=== PATIENT | male | born 1955 | race Caucasian/White ===

== ENCOUNTER → 2020-11-02 13:06 | Outpatient (BNVA) | payer BC, SELFPAY | PROVIDERS: PCP Internal Medicine; Visit Provider Internal Medicine Cardiovascular Disease ==

== ENCOUNTER → 2020-11-03 09:49 | Outpatient (REF) | payer BC, SELFPAY ==
--- NOTE | 2020-11-03 09:53 | CA_ITS ---
Transthoracic Echocardiogram Patient (Last, First, Middle): Adriano Boothe W Gender: Male Date of : 1955 Age: 64 Procedure Date: 11/03/2020 Procedure Type: Transthoracic Echocardiogram Location: OP Height: 177.8 cm Weight: 82.56 kg BSA: 2.01 m2 Heart Rate: bpm BP: 119 / 63 mmHg It Security Manager: JAVON Referring MD: Jeet Rothman MD Pipe Threading Machine Operator: Jeet Rothman MD Symptoms: I48.91 - Unspecified atrial fibrillation Study Quality: Fair ECG Rhythm: Atrial Fibrillation Conclusions: - 1. Moderate LV systolic dysfunction with LVEF of 35-40% 2. Mild biatrial enlargement 3. Mild mitral regurgitation 4. Normal RV systolic pressure 5. No pericardial effusion Findings Left Ventricle Normal left ventricular cavity size. There is normal left ventricular wall thickness. The left ventricular systolic function is moderately decreased. The visually estimated ejection fraction is between 35-40%. Diastolic function is indeterminate on the basis of available data. Right Ventricle Normal right ventricular cavity size and systolic function. Atria The left atrium is mildly dilated. There is no evidence of interatrial shunt. The right atrium is mildly dilated. Aortic Valve Normal aortic valve structure and function. There is no aortic valve stenosis. There is no aortic valve regurgitation. Mitral Valve Normal mitral valve structure and function. There is mild mitral valve regurgitation. There is no mitral valve stenosis. Pulmonic Valve The pulmonic valve is likely normal. There is no pulmonic valve regurgitation. Tricuspid Valve Normal tricuspid valve structure. There is mild tricuspid valve regurgitation. The right ventricular systolic pressure is normal. The right ventricular systolic pressure is 26 mmHg. Normal right atrial pressure. There is no evidence of pulmonary hypertension. Great Vessels All visible segments of the aorta are normal in size. The pulmonary artery was not well visualized. Venous The inferior vena cava is normal in size and collapses greater than 50% with inspiration. Pericardium/Pleural There is no evidence of pericardial effusion. Prior Study Comparison Changes noted compared to prior study dated: 11/02/2017. LV systolic function is reduced Measurements M-Mode Liner Measurements Normals - Women/Men LVIDd: 5.94 3.9-5.3/4.2-5.9 cm LVIDd Index: 2.96 1.9-3.2 cm/m2 LVIDs: 5.04 2.0-3.8 cm M-Mode Volumes LV EDV: 176.00 LV ESV: 120.00 2D Linear Measurements IVSd: 1.12 0.6-0.9/0.6-1.0 cm LVIDd: 5.13 3.9-5.3/4.2-5.9 cm LVIDd Index: 2.55 2.4-3.2/2.2-3.1 cm/m2 LVIDs: 4.59 2.0-3.6 cm LVPWd: 0.97 0.7-1.1 cm Ao Root: 3.30 2.1-3.5 cm LA Diam: 3.80 2.7-3.8/3.0-4.0 cm LAIDs Index: 1.89 1.5-2.3 cm/m2 LV Mass: 251.67 67-162/88-224 g LV Mass Index: 125.21 43-95/49-115 g/m2 LVOT Diam: 2.30 3.0+(-)1.3 cm 2D Systolic Function EF 4C: 33.80 >55% EF 2C: 29.70 >55% EF BiP: 32.40 >55% M-Mode Systolic Function FS: 15.20 27-47/25-43% LVEF: 31.80 >55% Mitral Valve MV Pk E: 0.85 MV Decel Time: 110.00 E'Lateral: 12.50 E'Medial: 7.62 E/E' Med: 11.10 E/E' Lat: 6.80 PHT: 32.00 MVA PHT: 6.88 Decel [place]: 7.98 Aortic Valve AoV Pk Geovany: 0.92 AoV Pk Grad: 3.00 LVOT LVOT Pk Geovany: 0.71 LVOT Mn Geovany: 0.48 LVOT VTI: 0.12 LVOT Pk Grad: 2.00 LVOT Mn Grad: 1.00 LVOT Diam: 2.30 LVOT Area: 4.15 Diastolic Function MV Pk E: 0.85 E'Medial: 7.62 E/E' Med: 11.10 E' Laterial: 12.50 E/E' Lat: 6.80 Tricuspid Valve TR Pk Geovany: 1.91 TR Pk Grad: 18.00 RA Press: 8.00 RVSP: 26.00 Great Vessels Aorta Ao Root-2D: 3.30 2.0-3.7 cm Ao Asc: 3.70 2.1-3.4 cm Updated in Other Vendor System with Status of Final Jeet Rothman MD electronically signed on 11/03/2020 2:05:27 PM with status of Final
== END ==
LOC: HO.CARD 09:49
PROVIDERS: PCP Internal Medicine; Visit Provider Internal Medicine Cardiovascular Disease
DX: I48.91 Unspecified atrial fibrillation (principal)
CPT/HCPCS: 93005; 93306

== ENCOUNTER → 2020-11-16 10:09 | Outpatient (REF) | payer BC, SELFPAY ==
--- NOTE | 2020-11-16 14:58 | ECG_ITS ---
Hook-up date: 2020-11-16 11:19:00 Duration: 26:07:00 Test Indications: UNSPEC. ATRIAL FIB Medications: [id number] QRS complexes 11 Ventricular ectopics which represent <1 % of total QRS comp. * Supraventricular ectopics which represent % of total QRS comp. * Paced QRS complexs which represent % of total QRS comp. VENTRICULAR ECTOPY 9 Isolated 0 Bigeminal Cycles 1 Couplets 0 Runs 0 Beats in Runs * Beats LONGEST at * BPM at :: -- * Beats FASTEST at * BPM at :: -- SUPRAVENTRICULAR ECTOPY * Isolated * Couplets * Runs * Beats in Runs * Beats LONGEST at * BPM at :: -- * Beats FASTEST at * BPM at :: -- HEART RATES 58 MIN at 09:50:31 2020-11-17 111 AVG 171 MAX at 08:02:54 2020-11-17 LONGEST RR 1.8720 secs at 12:04:08 2020-11-16 S-T LEVELS Channel 1 - 128 mm at 11:19:00 2020-11-16 - 128 mm at 11:19:00 2020-11-16 Channel 2 - 128 mm at 11:19:00 2020-11-16 - 128 mm at 11:19:00 2020-11-16 Channel 3 - 128 mm at 03:03:81 -- - 128 mm at 03:03:81 Underlying rhythm is atrial fibrillation; Average ventricular rate 111/min; About 77% of the time, rate >100/min; Atrial fibrillation does not appear rate controlled; Patient did not report any symptoms in the diary Referred By: Jeet Rothman Overread By: JONO TRINH
== END ==
LOC: HO.CARD 10:09
PROVIDERS: PCP Internal Medicine; Visit Provider Internal Medicine Cardiovascular Disease
DX: I48.91 Unspecified atrial fibrillation (principal)
CPT/HCPCS: 93226

== ENCOUNTER → 2020-11-30 14:26 | Outpatient (BNVA) | payer BC, SELFPAY | PROVIDERS: PCP Internal Medicine; Visit Provider Internal Medicine Cardiovascular Disease | DX: I48.91 Unspecified atrial fibrillation (principal); I42.9 Cardiomyopathy, unspecified | CPT/HCPCS: 93005 ==

== ENCOUNTER 2020-12-08 11:58 | Day surgery (SDC) | payer BC, SELFPAY ==
[2020-12-03 12:40] VITALS: BMI 26.9
--- NOTE | 2020-12-07 12:00 | HO.ANESPROP2 ---
Documented by User: Mimi Carr 12/07/20 12:03 HPI - Anesthesia Eval Consult details Narrative: 65yo [facility] for [facility] Active Problems Active Problems: All Active Problems (Updated 12/03/20 @ 12:33 by Licha Lo) Cardiomyopathy (Acute) Atrial fibrillation with rapid ventricular response (Acute) Past Medical History Medical History Atrial fibrillation with rapid ventricular response Cardiomyopathy GERD (gastroesophageal reflux disease) History of COVID-19 Hx of Lyme disease Family History Family History Father Afib CVD (cardiovascular disease) Mother CVD (cardiovascular disease) Surgical History Surgical History History of appendectomy Hx of colonoscopy Social History Social History Are you a primary managed care nurse to a significant other at home: No Do you presently have visiting nurse or other home services: No Smoking Status: Former smoker Smoking Quit Date: > 10 yrs ago Advance Directives: No Advance Directives Information Provided: No Advance Directives on File: No Recently lost weight without trying: No Meds Allergies Allergy/AdvReac Type Severity Reaction Status Date / Time Penicillins [PENICILLINS] Allergy Unknown RASH Verified 12/08/20 12:10 Home Medications Medication Instructions Recorded Confirmed Last Taken Type acetaminophen [Tylenol] 650 mg PO Q6H PRN 12/03/20 12/03/20 Unknown History diltiazem HCl 1 cap PO DAILY 12/03/20 12/03/20 Unknown History Exam Exam Date and Time: December 07, 2020 1200 Height,Weight and Vital Signs: Height 5 ft 10 in Weight 85.275 kg Narrative Narrative: Echo Conclusions: - 1. Moderate LV systolic dysfunction with LVEF of 35-40% 2. Mild biatrial enlargement 3. Mild mitral regurgitation 4. Normal RV systolic pressure 5. No pericardial effusion EKG 11/2020 afib with RVR @ 114 Assessment and Plan Assessment Anesthesia Assessment: Chart Reviewed Documented by User: Kemal Giles MD 12/08/20 13:33 PMFSH Past Medical History Medical History Atrial fibrillation with rapid ventricular response Cardiomyopathy GERD (gastroesophageal reflux disease) History of COVID-19 Hx of Lyme disease Family History Family History Father Afib CVD (cardiovascular disease) Mother CVD (cardiovascular disease) Surgical History Surgical History History of appendectomy Hx of colonoscopy Social History Social History Are you a primary managed care nurse to a significant other at home: No Do you presently have visiting nurse or other home services: No Smoking Status: Former smoker Smoking Quit Date: > 10 yrs ago Advance Directives: No Advance Directives Information Provided: No Advance Directives on File: No Recently lost weight without trying: No Meds Allergies Allergy/AdvReac Type Severity Reaction Status Date / Time Penicillins [PENICILLINS] Allergy Unknown RASH Verified 12/08/20 12:10 Home Medications Medication Instructions Recorded Confirmed Last Taken Type acetaminophen [Tylenol] 650 mg PO Q6H PRN 12/03/20 12/03/20 Unknown History diltiazem HCl 1 cap PO DAILY 12/03/20 12/03/20 Unknown History Exam Airway Mallampati Class: I TM Dist: >3cm Neck ROM: Full Loose/Missing/Broken Teeth: No Heart: Atrial flutter Lungs: NL Assessment and Plan Assessment Anesthesia Assessment: Anesthesia Plan Discussed Final Anesthetic Review NPO: Yes ASA Class: III Final Preanesthetic Review: No Changes in Pt Med Stat, Meds/Allgs Chart Reviewed, Consent Obtained/Reviewed and Anes Risks/Benef Reviewed Patient Risk: Intermediate Procedure Risk: Low Anesthetic Plan Anesthetic Plan: MAC: Disposition: Standard PACU
--- NOTE | 2020-12-08 08:34 | MHC.SHP ---
Pre-Procedural Eval Section A The patient is an INPATIENT: No Changes since office visit: Yes Changes in Medication and Yes Patient answered all questions; No Cold of Flu in the past 2 weeks and No New Medical Problems The History & Physical has been completed within 30 days and I have reviewed it.: Yes Section B Chief Complaint: a-fib Allergies: Allergies Allergy/AdvReac Type Severity Reaction Status Date / Time Penicillins [PENICILLINS] Allergy Unknown RASH Unverified 12/03/20 12:30 Plan I have reviewed the history and physical and performed a pertinent physical examination on my patient. No changes have occurred unless specified.
[2020-12-08 12:43] VITALS: BP 134/90; PULSE 86; RESP 16; TEMP 36.5; O2SAT 100
[2020-12-08] MEDS: Lactated Ringers 1,000 ML 20 ML IVCONT (12:44)
--- NOTE | 2020-12-08 13:14 | CA_ITS ---
Transesophageal Echocardiogram Patient (Last, First, Middle): Adriano Boothe W Gender: Male Date of : 1955 Age: 65 Procedure Date: 12/08/2020 Procedure Type: Transesophageal Echocardiogram Location: OP Height: 177.8 cm Weight: 85.28 kg BSA: 2.03 m2 Heart Rate: bpm Draw Tender: YADIEL Referring MD: Jeet Rothman MD Lodging Facilities Manager: Jeet Rothman MD Symptoms: Pre cardioversion Conclusion: ??? 1. No intracardiac thrombi, masses or vegetations including in the left atrial appendage 2. Severely reduced LV systolic function 3. Biatrial enlargement, right greater than left 4. Mild aortic and mitral regurgitation 5. Mildly dilated ascending aorta 6. Normal pericardium 7. No intracardiac shunting Findings Procedure Information Consent was obtained prior to the procedure. Pre TUSHAR oral cavity was checked and revealed no overcrowding. The adult 3D probe was passed with no difficulty. Left Ventricle Normal left ventricular cavity size. The left ventricular systolic function is severely decreased. The visually estimated ejection fraction is between 25-30%. Diastolic function is indeterminate on the basis of available data. Right Ventricle Mildly increased right ventricular cavity size. There is normal right ventricular systolic function. Atria The left atrium is mildly dilated. There is no evidence of interatrial shunt. There is mild smoke formation seen within the left atrium. The left atrial appendage was identified in multiple views including with explain technology. There are no thrombi seen within left atrial appendage. The left atrial appendage ejection velocity is reduced below 40 centimeters/second. Left upper, right upper and right lower pulmonary vein drain normally into the left atrium. The right atrium is moderately dilated. The IVC and SVC drain normally into the right atrium. Aortic Valve Normal aortic valve structure and function. There is no aortic valve stenosis. There is mild aortic valve regurgitation. no masses or vegetations seen on the valve. Mitral Valve Normal mitral valve structure and function. There is mild mitral valve regurgitation. There is no mitral valve stenosis. No masses, vegetations attached to the leaflet. The inter valvular fibrosa is within normal limits Pulmonic Valve The pulmonic valve is normal. There is no pulmonic valve regurgitation. Tricuspid Valve Normal tricuspid valve structure. There is mild tricuspid valve regurgitation. The right ventricular systolic pressure is normal. Normal right atrial pressure. Great Vessels There is mild dilatation of the ascending aorta measuring 4.00 cm. The visualized portions of the pulmonary artery and branches are normal. Venous The inferior vena cava is normal in size and collapses greater than 50% with inspiration. Pericardium/Pleural There is no evidence of pericardial effusion. Prior Study Comparison Changes noted compared to prior study dated: 11/03/2020. Compared to prior transthoracic echo study, LV ejection fraction appears further reduced Measurements Great Vessels Aorta Ao Asc: 4.00 2.1-3.4 cm Updated by Jeet Rothman on 04:07 PM with Status of Final Jeet Rothman MD electronically signed on 12/08/2020 4:07:12 PM with status of Final
--- NOTE | 2020-12-08 14:04 | ECG_ITS ---
Test Reason : S/P CARDIOVERSION Blood Pressure : / mmHG Vent. Rate : 056 BPM Atrial Rate : 056 BPM P-R Int : 208 ms QRS Dur : 086 ms QT Int : 486 ms P-R-T Axes : 026 016 042 degrees QTc Int : 468 ms Sinus bradycardia Otherwise normal ECG When compared with ECG of 17-OCT-2017 12:02, QT has lengthened Referred By: Jeet Rothman Electronically Signed By:Abraham Borden
--- NOTE | 2020-12-08 14:05 | HO.CARDIVERS ---
Cardioversion Procedure Note Cardioversion Date of Procedure: 12/08/2020 Ordering Provider: Myself Performing Provider: Myself Indication for Procedure: LV systolic dysfunction with persistent difficult to control atrial fibrillation with rapid ventricular response Pre-Op Diagnosis: Persistent atrial fibrillation Post-Op Diagnosis: Sinus rhythm Performed with Transesophageal Echo: Yes TUSHAR findings (if TUSHAR Performed): No left atrial appendage clot noted. The full report dictated separately History: See H&P for details Consent: Verbal and Written consent was obtained from the patient before starting and confirming use of oral anticoagulation. The patient was made aware of the risk of the procedure including benefits, alternatives and 2nd opinion to the procedure Procedure: After consent obtained, cardioversion pads were attached AP configuration and the patient was sedated by the anesthesia team. Once adequate sedation achieved, patient was delivered 200 joules of biphasic synchronized energy in AP configuration. Complications: None Impression: Successful conversion to sinus rhythm Recommendations: 1. Continue amiodarone loading 400 mg b.i.d. for total of 2 weeks followed by 200 mg daily 2. Continue full oral anticoagulation with Xarelto 3. Stat EKG 4. Follow-up in the office in 4 weeks after Holter monitor.
[2020-12-08 14:09] VITALS: BP 105/68; PULSE 55; RESP 14; TEMP 36.6; O2SAT 96
[2020-12-08 14:24] VITALS: BP 106/72; PULSE 53; RESP 15; O2SAT 98
[2020-12-08 14:39] VITALS: BP 114/81; PULSE 57; RESP 15; O2SAT 100
[2020-12-08 14:54] VITALS: BP 115/82; PULSE 59; RESP 16; O2SAT 99
[2020-12-08 15:13] VITALS: TEMP 36.7
== END 2020-12-08 15:24 | disposition home or self-care (01) ==
PROVIDERS: PCP Internal Medicine; Visit Provider Internal Medicine Cardiovascular Disease
PROC: (CPT 93312; principal; 2020-12-08 13:30)
PROC: 5A2204Z Restoration of Cardiac Rhythm, Single (ICD-10-PCS; 2020-12-08 13:30)
DX: I48.19 Other persistent atrial fibrillation (principal); I42.9 Cardiomyopathy, unspecified; K21.9 Gastro-esophageal reflux disease without esophagitis; Z79.899 Other long term (current) drug therapy; Z88.0 Allergy status to penicillin; Z86.16 Personal history of COVID-19
CPT/HCPCS: 92960; 93005; 93312

== ENCOUNTER → 2020-12-22 15:00 | Outpatient (REF) | payer BC, SELFPAY ==
--- NOTE | 2020-12-22 13:56 | ECG_ITS ---
Hook-up date: 2020-12-22 15:21:00 Duration: 23:57:00 Test Indications: UNSPECIFIED AFIB Medications: [id number] QRS complexes 13 Ventricular ectopics which represent <1 % of total QRS comp. * Supraventricular ectopics which represent % of total QRS comp. * Paced QRS complexs which represent % of total QRS comp. VENTRICULAR ECTOPY 13 Isolated 0 Bigeminal Cycles 0 Couplets 0 Runs 0 Beats in Runs * Beats LONGEST at * BPM at :: -- * Beats FASTEST at * BPM at :: -- SUPRAVENTRICULAR ECTOPY * Isolated * Couplets * Runs * Beats in Runs * Beats LONGEST at * BPM at :: -- * Beats FASTEST at * BPM at :: -- HEART RATES 57 MIN at 17:56:06 2020-12-22 104 AVG 123 MAX at 14:18:35 2020-12-23 LONGEST RR 1.5120 secs at 18:09:57 2020-12-22 S-T LEVELS Channel 1 - 128 mm at 15:21:00 2020-12-22 - 128 mm at 15:21:00 2020-12-22 Channel 2 - 128 mm at 15:21:00 2020-12-22 - 128 mm at 15:21:00 2020-12-22 Channel 3 - 128 mm at 03:44:01 -- - 128 mm at 03:44:01 Underlying rhythm is atrial flutter; Average ventricular rate 104/min; range 57-123/min; About 71% of the time, ventricular rate >100/min; Rare PVCs; Patient diary not available for review. Referred By: Jeet Rothman Overread By: JONO TRINH
== END ==
LOC: HO.CARD 15:00
PROVIDERS: PCP Internal Medicine; Visit Provider Internal Medicine Cardiovascular Disease
DX: I48.91 Unspecified atrial fibrillation (principal)
CPT/HCPCS: 93005; 93226

== ENCOUNTER → 2020-12-23 14:34 | Outpatient (BNVA) | payer BC, SELFPAY | PROVIDERS: PCP Internal Medicine; Visit Provider Internal Medicine Cardiovascular Disease ==

== ENCOUNTER → 2021-08-29 14:38 | Outpatient (BNVA) | payer BC, SELFPAY | PROVIDERS: PCP Internal Medicine; Referring Provider Internal Medicine; Visit Provider Internal Medicine Cardiovascular Disease | DX: I42.9 Cardiomyopathy, unspecified (principal); I48.0 Paroxysmal atrial fibrillation | CPT/HCPCS: 93005 ==

== ENCOUNTER → 2021-10-27 08:33 | Outpatient (REF) | payer BC, SELFPAY ==
--- NOTE | 2021-10-27 08:36 | HM_ITS ---
Total monitoring time 3 days and 17 hours. Underlying rhythm is sinus. Minimum rate 56/Min. Maximum 123/Min. Average 67/Min. No atrial fibrillation or flutter AV blocks or pauses. Very rare supraventricular ectopy with minimal burden. No significant ventricular ectopy. No patient events. MTDD
--- NOTE | 2021-10-27 08:36 | CA_ITS ---
Transthoracic Echocardiogram Patient (Last, First, Middle): Adriano Boothe W Gender: Male Date of : 1955 Age: 65 Procedure Date: 10/27/2021 Procedure Type: Transthoracic Echocardiogram Location: OP Height: 177.8 cm Weight: 83.92 kg BSA: 2.02 m2 Heart Rate: bpm BP: 111 / 63 mmHg Front End Driver: JAVON Referring MD: Jeet Rothman MD Symptoms: I42.9 - Cardiomyopathy, unspecified Conclusions: - 1. Normal LV systolic function with normal filling pattern 2. Mildly dilated left atrium 3. Mild aortic and mitral regurgitation 4. Normal RV systolic pressure 5. No pericardial effusion Findings Left Ventricle Normal left ventricular size, thickness, and systolic function. The visually estimated ejection fraction is between 60-65%. There is no evidence of regional wall motion abnormalities. Spectral Doppler is indicative of a normal filling pattern. measured global longitudinal endocardial strain is - 23.6% which is within normal limits Right Ventricle Normal right ventricular cavity size and systolic function. Atria The left atrium is mildly dilated. There is no evidence of interatrial shunt. The right atrium is normal in size. Aortic Valve The aortic valve structure and function is likely normal. There is no aortic valve stenosis. There is mild aortic valve regurgitation. Mitral Valve Normal mitral valve structure and function. There is mild mitral valve regurgitation. There is no mitral valve stenosis. Pulmonic Valve The pulmonic valve was not well visualized. Tricuspid Valve Normal tricuspid valve structure. There is mild tricuspid valve regurgitation. The right ventricular systolic pressure is normal. The right ventricular systolic pressure is 22 mmHg. Normal right atrial pressure. There is no evidence of pulmonary hypertension. Great Vessels The pulmonary artery was not well visualized. There is mild dilatation of the ascending aorta measuring 3.80 cm. Venous The inferior vena cava is normal in size and collapses greater than 50% with inspiration. Pericardium/Pleural There is no evidence of pericardial effusion. Prior Study Comparison Significant changes compared to prior study dated: 12/08/2020. LV systolic function has normalized Measurements 2D Linear Measurements IVSd: 1.10 0.6-0.9/0.6-1.0 cm LVIDd: 4.95 3.9-5.3/4.2-5.9 cm LVIDd Index: 2.45 2.4-3.2/2.2-3.1 cm/m2 LVIDs: 2.85 2.0-3.6 cm LVPWd: 1.09 0.7-1.1 cm Ao Root: 4.00 2.1-3.5 cm LA Diam: 2.60 2.7-3.8/3.0-4.0 cm LAIDs Index: 1.29 1.5-2.3 cm/m2 LV Mass: 278.44 67-162/88-224 g LV Mass Index: 137.84 43-95/49-115 g/m2 LVOT Diam: 2.20 3.0+(-)1.3 cm 2D Systolic Function EF 4C: 62.30 >55% Mitral Valve MV Pk E: 0.67 MV PK A: 0.59 MV Decel Time: 251.00 E/A: 1.10 E'Lateral: 8.92 E'Medial: 8.70 E/E' Med: 7.70 E/E' Lat: 7.50 PHT: 74.00 MVA PHT: 2.97 Decel [place]: 2.66 Aortic Valve AoV Pk Geovany: 1.19 AoV Pk Grad: 6.00 AI Pk Geovany: 2.80 AI [place]: 1.19 LVOT LVOT Pk Geovany: 1.00 LVOT Mn Geovany: 0.69 LVOT VTI: 0.23 LVOT Pk Grad: 4.00 LVOT Mn Grad: 2.00 LVOT Diam: 2.20 LVOT Area: 3.80 Diastolic Function MV Pk E: 0.67 MV Pk A: 0.59 E/A: 1.10 E'Medial: 8.70 E/E' Med: 7.70 E' Laterial: 8.92 E/E' Lat: 7.50 Right Ventricle TAPSE (mm): 1.84 TVS' Geovany: 14.60 Tricuspid Valve TR Pk Geovany: 2.17 TR Pk Grad: 19.00 RA Press: 3.00 RVSP: 22.00 Great Vessels Aorta Ao Root-2D: 4.00 2.0-3.7 cm Ao Asc: 3.80 2.1-3.4 cm Updated in Other Vendor System with Status of Final Jeet Rothman MD electronically signed on 10/28/2021 4:12:25 PM with status of Final
== END ==
LOC: HO.CARD 08:33
PROVIDERS: PCP Internal Medicine; Visit Provider Internal Medicine Cardiovascular Disease
DX: I48.91 Unspecified atrial fibrillation (principal); I42.9 Cardiomyopathy, unspecified
CPT/HCPCS: 93242; 93306

== ENCOUNTER → 2021-11-07 09:51 | Outpatient (BNVA) | payer BC, SELFPAY | PROVIDERS: PCP Internal Medicine; Referring Provider Internal Medicine; Visit Provider Internal Medicine Cardiovascular Disease | DX: I48.0 Paroxysmal atrial fibrillation (principal); I42.9 Cardiomyopathy, unspecified | CPT/HCPCS: 93005 ==

== ENCOUNTER 2021-11-18 08:03 | Day surgery (SDC) | payer BC, SELFPAY ==
--- NOTE | 2021-11-17 08:37 | P.CONAN_ITS ---
Documented by User: Mimi Carr NP 11/17/21 08:41 HPI - Anesthesia Eval Consult details Narrative: 66yo M for Upper Endoscopy and Colonoscopy Xarelto for afib PMFSH Active Problems Active Problems: All Active Problems (Updated 11/14/21 @ 09:41 by Licha Lo RN) Typical atrial flutter (Acute) Paroxysmal atrial fibrillation (Acute) Cardiomyopathy (Acute) Past Medical History Medical History (Updated 11/14/21 @ 09:41 by Licha Lo RN) Atrial fibrillation with rapid ventricular response Cardiomyopathy GERD (gastroesophageal reflux disease) History of cardioversion History of COVID-19 Hx of Lyme disease On anticoagulant therapy Paroxysmal atrial fibrillation Family History Family History Father Afib CVD (cardiovascular disease) Mother CVD (cardiovascular disease) Surgical History Surgical History History of appendectomy Hx of colonoscopy Social History Social History Are you a primary primary care sales representative to a significant other at home: No Do you presently have visiting nurse or other home services: No Patient Tobacco Use Status: Former Tobacco user Quit Date: age 19 Use of substances other than those prescribed or required for medical reasons: No Are you DNR?: No Advance Directives: No Advance Directives Information Provided: Yes Meds Allergies Allergy/AdvReac Type Severity Reaction Status Date / Time Penicillins [PENICILLINS] Allergy Unknown RASH Verified 11/07/21 09:57 Home Medications Medication Instructions Recorded Confirmed Last Taken Type acetaminophen 325 mg tablet 650 mg PO Q6H PRN 12/03/20 11/14/21 Unknown History (Tylenol) Exam Exam Date and Time: November 17, 2021 0837 Narrative Narrative: EKG 11/2021 poor quality with baseline artifact with normal sinus rhythm with normal QT interval ECHO 10/2021 Conclusions: - 1.? Normal LV systolic function with normal filling pattern? ? 2. Mildly dilated left atrium? 3. Mild aortic and mitral regurgitation? 4.? Normal RV systolic pressure? 5.? No pericardial effusion? ? Holter 10/2021 Total monitoring time 3 days and 17 hours.? Underlying rhythm is sinus.? Minimum rate 56/Min.? Maximum 123/Min.? Average 67/Min.? No atrial fibrillation or flutter AV blocks or pauses.? Very rare supraventricular ectopy with minimal burden.? No significant ventricular ectopy.? No patient events. Assessment and Plan Assessment Anesthesia Assessment: Chart Reviewed Documented by User: Desmond Nicole MD 11/18/21 11:21 HPI - Anesthesia Eval Consult details Narrative: 66yo M for Upper Endoscopy and Colonoscopy Xarelto stopped by instrument/control technician [facility] Past Medical History Medical History (Updated 11/14/21 @ 09:41 by Licha Lo RN) Atrial fibrillation with rapid ventricular response Cardiomyopathy GERD (gastroesophageal reflux disease) History of cardioversion History of COVID-19 Hx of Lyme disease On anticoagulant therapy Paroxysmal atrial fibrillation Functional capacity: independent ambulation Family History Family History Father Afib CVD (cardiovascular disease) Mother CVD (cardiovascular disease) Family history of problems with anesthesia: No Surgical History Surgical History History of appendectomy Hx of colonoscopy History of Problems with Anesthesia: No Social History Social History Are you a primary primary care sales representative to a significant other at home: No Do you presently have visiting nurse or other home services: No Patient Tobacco Use Status: Former Tobacco user Quit Date: age 19 Use of substances other than those prescribed or required for medical reasons: No Are you DNR?: No Advance Directives: No Advance Directives Information Provided: Yes Meds Allergies Allergy/AdvReac Type Severity Reaction Status Date / Time Penicillins [PENICILLINS] Allergy Unknown RASH Verified 11/07/21 09:57 Home Medications Medication Instructions Recorded Confirmed Last Taken Type acetaminophen 325 mg tablet 650 mg PO Q6H PRN 12/03/20 11/14/21 Unknown History (Tylenol) Exam Airway Mallampati Class: II TM Dist: >3cm Neck ROM: Full Loose/Missing/Broken Teeth: Yes (Caps , missing , poor dentation ) Heart: rrr Lungs: bl breath sounds Assessment and Plan Assessment Anesthesia Assessment: Anesthesia Plan Discussed Final Anesthetic Review Family History of Problems with Anesthesia: No History of Problems with Anesthesia: No NPO: Yes ASA Class: III Final Preanesthetic Review: Meds/Allgs Chart Reviewed, Consent Obtained/Reviewed and Anes Risks/Benef Reviewed Patient Risk: High Procedure Risk: Intermediate Anesthetic Plan Anesthetic Plan: MAC: Disposition: Standard PACU
[2021-11-18 08:26] VITALS: BP 128/80; PULSE 65; RESP 18; TEMP 36.6; O2SAT 98; BMI 25.7
[2021-11-18] MEDS: Lactated Ringers 1,000 ML 100 ML IVCONT (08:49)
[2021-11-18 09:58] VITALS: BP 108/68; PULSE 56; RESP 12; TEMP 36.1; O2SAT 98
--- NOTE | 2021-11-18 10:01 | PM.OP ---
Brief Operative Note Date of Service: 11/18/21 Pre-op diagnosis: GERD, Screening Post-op diagnosis: other (Minimal hiatal hernia, Colon polyps) Procedure: EGD, Colonoscopy to the cecum and TI with hot snare polypectomy x 2, Placement of 1 Resolution clip on the rectal polypectomy site Surgeon: Meet Gaitan Anesthesia: MAC Was an Baseball Glove Stuffer used for this Procedure?: No Estimated blood loss (mL): 2.0 Pathology: other (A. Transverse colon polyp B. Rectal polyp) Condition: stable Disposition: PACU
[2021-11-18 10:13] VITALS: BP 125/65; PULSE 61; RESP 18; TEMP 36.1; O2SAT 99
--- NOTE | 2021-11-18 10:31 | OP_ITS ---
SURGEON: Meet Gaitan MD INDICATIONS: The patient presents for evaluation of gastroesophageal reflux and colorectal cancer screening. Full consent obtained from him for this, including risks of bleeding and perforation. PREOPERATIVE DIAGNOSIS: POSTOPERATIVE DIAGNOSIS: PROCEDURE PERFORMED: Esophagogastroduodenoscopy and colonoscopy to cecum and terminal ileum with hot snare polypectomy x2 and placement of a Resolution clip on the rectal polypectomy site. ESTIMATED BLOOD LOSS: COMPLICATIONS: ANESTHESIA: Monitored anesthesia care. ASSISTANTS: SPECIMENS: PREOPERATIVE DIAGNOSES: Gastroesophageal reflux and colorectal cancer screening. POSTOPERATIVE DIAGNOSES: Gastroesophageal reflux, colorectal cancer screening, small hiatal hernia, colon polyps, diverticulosis and internal hemorrhoids. DESCRIPTION OF PROCEDURE: The patient was placed in the left lateral decubitus position. The Olympus video gastroscope was passed in the posterior oropharynx and upper esophagus under direct vision. The scope was passed slowly into the distal esophagus. The gastroesophageal junction appeared normal at 39 cm. There was no sign of any esophagitis, Rivera esophagus, nor ulceration. The scope entered into the stomach. There was a minimal hiatal hernia. The scope was advanced to pylorus and the duodenum was cannulated to the descending portion. The duodenum including the bulb appeared normal without mass or ulceration. The scope was withdrawn back into the stomach. The gastric antrum and body appeared normal. Good peristalsis. Scope was retroflexed visualizing the proximal stomach carefully, which appeared normal, without any sign of mass or ulceration. The scope was straightened. The scope was withdrawn back to the esophagus. The gastroesophageal junction appeared normal. The esophageal mucosa appeared normal. The scope was withdrawn from the patient. He was turned around for the colonoscopy. The digital rectal exam revealed no abnormalities. The Olympus video pediatric colonoscope was entered into the rectum and advanced easily to the cecum. Once in the cecum I did identify normal-appearing cecal pouch with appendiceal orifice and a normal-appearing ileocecal valve. The terminal ileum was cannulated and appeared normal. The scope was withdrawn back in the colon. The entire cecum and ileocecal valve appeared normal. The scope was slowly withdrawn assessing all mucosal surfaces carefully. Preparation was excellent. In the transverse colon was an approximately 8 mm polyp on a short stalk, which was snared and recovered by suction with the hot snare polypectomy. The polypectomy site appeared clean, without any sign of residual polyp nor bleeding. There was a mild amount of sigmoid diverticulosis. There was no evidence of any colitis nor angiodysplasia. In the rectum was an approximately 8 mm grossly adenomatous polyp, which was removed by hot snare polypectomy and recovered by suction. There was persistent oozing from the polypectomy site and this was cauterized with the tip of the snare with good effect. I then placed a single Resolution clip on it as well. This was deployed well and there was good hemostasis. The scope was retroflexed visualizing some small internal hemorrhoids, but no other pathology. The rectal mucosa appeared normal. The scope was withdrawn from the patient. He tolerated both procedures well and was returned to recovery area in stable condition. IMPRESSION: 1. Colon polyps, status post hot snare polypectomy. 2. Diverticulosis. 3. Internal hemorrhoids. 4. Minimal hiatal hernia. PLAN: The results of the pathology will be checked. I would recommend a repeat colonoscopy in 5 years assuming these are tubular adenomas. He was advised not to use any aspirin and NSAIDs for at least 1 week. At this point, he is not using any omeprazole for reflux and he has been asymptomatic. He would otherwise see me on a p.r.n. basis. MD LEONARDA Mahajan/EMELINA / [phone]
== END 2021-11-18 10:57 | disposition home or self-care (01) ==
PROVIDERS: PCP Internal Medicine; Visit Provider Internal Medicine
PROC: (CPT 45385; principal; 2021-11-18 09:00)
DX: Z12.11 Encounter for screening for malignant neoplasm of colon (principal); Z80.0 Family history of malignant neoplasm of digestive organs; D12.3 Benign neoplasm of transverse colon; K62.1 Rectal polyp; K57.30 Diverticulosis of large intestine without perforation or abscess without bleeding; K64.8 Other hemorrhoids; K21.9 Gastro-esophageal reflux disease without esophagitis; K44.9 Diaphragmatic hernia without obstruction or gangrene; A69.20 Lyme disease, unspecified; Z86.16 Personal history of COVID-19; Z87.891 Personal history of nicotine dependence
CPT/HCPCS: 45385; 43235; 88305

== ENCOUNTER → 2022-04-06 10:27 | Outpatient (BNVA) | payer BC, SELFPAY | PROVIDERS: PCP Internal Medicine; Visit Provider Internal Medicine Cardiovascular Disease | DX: I48.0 Paroxysmal atrial fibrillation (principal); I42.9 Cardiomyopathy, unspecified | CPT/HCPCS: 93005 ==

== ENCOUNTER → 2022-07-28 12:11 | Outpatient (REF) | payer BC, SELFPAY ==
--- NOTE | 2022-07-28 12:16 | CA_ITS ---
Transthoracic Echocardiogram Patient (Last, First, Middle): Adriano Boothe W Gender: Male Date of : 1955 Age: 66 Procedure Date: 07/28/2022 Procedure Type: Transthoracic Echocardiogram Location: OP Height: 180.34 cm Weight: 79.38 kg BSA: 1.99 m2 Heart Rate: 72 bpm BP: 115 / 75 mmHg Brush Worker: SAILAJA Referring MD: Jeet Rothman MD Tube Bending Machine Operator: Jeet Rothman MD Symptoms: I48.0 - Paroxysmal atrial fibrillation Study Quality: Adequate ECG Rhythm: Sinus Conclusions: - 1. Normal LV systolic function with impaired relaxation filling pattern 2. Normal cardiac valvular Doppler 3. Mildly dilated ascending aorta 4.2 cm 4. No gross pericardial effusion Findings Left Ventricle Normal left ventricular size, thickness, and systolic function. The visually estimated ejection fraction is between 55-60%. Spectral Doppler is indicative of an impaired relaxation filling pattern. E/E prime ratio is between 8 and 15 consistent with indeterminate filling pressures. Right Ventricle Normal right ventricular cavity size and systolic function. Atria Both atria are normal in size. Interatrial shunt cannot be excluded. Aortic Valve The aortic valve structure and function is likely normal. There is no aortic valve stenosis. There is trace (trivial) aortic valve regurgitation. Mitral Valve Normal mitral valve structure and function. There is trace mitral valve regurgitation. There is no mitral valve stenosis. Pulmonic Valve The pulmonic valve was not well visualized. Tricuspid Valve Likely normal tricuspid valve structure and function. Tricuspid regurgitation envelope is inadequate for calculation of right ventricular systolic pressure. Great Vessels The pulmonary artery was not well visualized. There is mild dilatation of the ascending aorta measuring 4.20 cm. Venous The inferior vena cava was not well visualized. Pericardium/Pleural There is no evidence of pericardial effusion. Prior Study Comparison Changes noted compared to prior study dated: 10/27/2021. ascending aorta is measured at 4.2 cm Measurements 2D Linear Measurements IVSd: 0.97 0.6-0.9/0.6-1.0 cm LVIDd: 4.90 3.9-5.3/4.2-5.9 cm LVIDd Index: 2.46 2.4-3.2/2.2-3.1 cm/m2 LVIDs: 3.44 2.0-3.6 cm LVPWd: 1.17 0.7-1.1 cm LA Diam: 3.00 2.7-3.8/3.0-4.0 cm LAIDs Index: 1.51 1.5-2.3 cm/m2 LV Mass: 240.36 67-162/88-224 g LV Mass Index: 120.78 43-95/49-115 g/m2 LVOT Diam: 2.20 3.0+(-)1.3 cm 2D Systolic Function EF 4C: 59.90 >55% EF 2C: 53.20 >55% EF BiP: 56.20 >55% Mitral Valve MV Pk E: 0.57 MV PK A: 0.64 MV Decel Time: 240.00 E/A: 0.90 E'Lateral: 9.03 E'Medial: 9.46 E/E' Med: 6.00 E/E' Lat: 6.30 PHT: 70.00 MVA PHT: 3.14 Decel [place]: 2.38 Aortic Valve AoV Pk Geovany: 1.17 AoV Mn Geovany: 0.80 AoV VTI: 0.23 AoV Pk Grad: 5.00 Aov Mn Grad: 3.00 AMAURY Cont.VTI: 3.48 LVOT LVOT Pk Geovany: 1.02 LVOT Mn Geovany: 0.68 LVOT VTI: 0.21 LVOT Pk Grad: 4.00 LVOT Mn Grad: 2.00 LVOT Diam: 2.20 LVOT Area: 3.80 Diastolic Function MV Pk E: 0.57 MV Pk A: 0.64 E/A: 0.90 E'Medial: 9.46 E/E' Med: 6.00 E' Laterial: 9.03 E/E' Lat: 6.30 Right Ventricle TAPSE (mm): 22.60 TVS' Geovany: 13.50 Great Vessels Aorta Sinus of Valsalva: 4.00 2.0-3.5 cm Ao Asc: 4.20 2.1-3.4 cm Pulmonary Valve PV Pk Geovany: 0.87 Peak PV Grad: 3.00 Updated in Other Vendor System with Status of Final Jeet Rothman MD electronically signed on 07/28/2022 3:13:37 PM with status of Final
== END ==
LOC: HO.CARD 12:11
PROVIDERS: PCP Internal Medicine; Visit Provider Internal Medicine
DX: I48.0 Paroxysmal atrial fibrillation (principal)
CPT/HCPCS: 93306

== ENCOUNTER → 2022-10-12 09:15 | Outpatient (BNVA) | payer BC, SELFPAY | PROVIDERS: PCP Internal Medicine; Referring Provider Internal Medicine; Visit Provider Internal Medicine Cardiovascular Disease | DX: I48.0 Paroxysmal atrial fibrillation (principal); Z86.79 Personal history of other diseases of the circulatory system | CPT/HCPCS: 93005 ==

== ENCOUNTER 2023-05-15 12:44 | Outpatient (REF) | payer BC, SELFPAY ==
[2023-05-16 11:39] LABS: Lyme Abs Screen <0.90 index
== END 2023-05-15 12:45 | disposition home or self-care (01) ==
LOC: HO.10HDL 12:44
PROVIDERS: Visit Provider Internal Medicine
DX: R51.9 Headache, unspecified (principal); R53.83 Other fatigue
CPT/HCPCS: 36415; 86617; 86618

== ENCOUNTER 2023-06-07 09:42 | Outpatient (REF) | payer BC, SELFPAY ==
[2023-06-07 11:36] LABS: Alanine Aminotransferase 19 U/L (0-40); Albumin Level 4.2 g/dL (3.5-5.0); Alkaline Phosphatase 50 U/L (39-117); Anion Gap 11 (12-20); Aspartate Amino Transferase 20 U/L (5-37); Bilirubin Total 0.9 mg/dL (0.0-1.0); Blood Urea Nitrogen 15 mg/dL (9-16); C Reactive Protein < 0.10 mg/dL (< or = 0.50); Calcium 9.4 mg/dL (8.4-10.2); Carbon Dioxide 27 mmol/L (22-29); Chloride 105 mmol/L (96-108); Cholesterol 257 mg/dL (<200); Estimated Glomerular Filt Rate > 60; Glucose Fasting 92 mg/dL (60-99); HDL Cholesterol 50 mg/dL (>40); LDL Cholesterol Calculated 181 mg/dL (<100); Potassium 3.7 mmol/L (3.3-5.1); Sodium 139 mmol/L (135-145); Total Protein 7.2 g/dL (6.5-8.0); Triglycerides 131 mg/dL (<150)
[2023-06-07 11:50] LABS: Free T4 (Free Thyroxine) 0.88 ng/dL (0.71-1.85); Thyroid Stimulating Hormone 5.04 uIU/mL (0.32-4.0)
[2023-06-07 11:55] LABS: Prostate Specific Antigen Scr 0.76 ng/mL (<0.05-4.0); Vitamin B12 438 pg/mL (200-900)
[2023-06-07 11:57] LABS: MANUAL DIFF FLAG NO
[2023-06-07 12:21] LABS: Basophils Absolute Auto 0.1 X10*3/uL (0.0-0.2); Basophils Percent Auto 0.8 % (0-2); Eosinophils Absolute Auto 0.1 X10*3/uL (0.0-0.4); Eosinophils Percent Auto 1.7 % (0-4); Hematocrit 46.9 % (42.0-52.0); Imm Gran Abs Auto 0.02 X10*3/uL (0.00-0.03); Imm Gran Pct Auto 0.3 % (0.0-0.4); Lymphocytes Absolute Auto 3.3 X10*3/uL (1.2-4.9); Lymphocytes Percent Auto 42.9 % (20-40); Mean Corpuscular HGB Conc 34.1 g/dl (31.0-36.0); Mean Corpuscular Hemoglobin 30.9 pg (27.0-33.0); Mean Corpuscular Volume 90.5 fL (80.0-98.0); Mean Platelet Volume 10.4 fL (9.4-12.4); Monocytes Absolute Auto 0.5 X10*3/uL (0.1-1.2); Monocytes Percent Auto 6.2 % (2-11); Neutrophils Absolute Auto 3.7 x10*3/uL (2.0-8.3); Neutrophils Percent Auto 48.1 % (45-73); Platelet Count 290 X10*3/uL (160-400); Red Blood Count 5.18 X10*6/uL (4.60-5.80); Red Cell Distribution Width 12.3 % (11.0-16.0); White Blood Count 7.6 X10*3/uL (4.8-10.8)
[2023-06-07 12:23] LABS: Appearance Urine Clear; Color Urine Yellow; Glucose Urine UA Negative (Negative); Leukocyte Esterase Urine Negative (Negative); Nitrite Urine Negative (Negative); PH 7.5 (5.0-9.0); Urine Blood Negative (Negative); Urine Ketones Negative (Negative); Urine Protein Negative (Neg-Trace)
[2023-06-07 12:30] LABS: Estimated Average Glucose 94 mg/dL; Hemoglobin A1c % 4.9 % (<6.0)
== END 2023-06-07 09:43 | disposition home or self-care (01) ==
LOC: HO.10HDL 09:42
PROVIDERS: Visit Provider Internal Medicine
DX: R53.83 Other fatigue (principal); E78.00 Pure hypercholesterolemia, unspecified; Z12.5 Encounter for screening for malignant neoplasm of prostate; Z86.79 Personal history of other diseases of the circulatory system; Z86.19 Personal history of other infectious and parasitic diseases
CPT/HCPCS: 36415; 80053; 80061; 81003; 82550; 82607; 83036; 84153; 84439; 84443; 85025; 86140

== ENCOUNTER 2023-11-20 13:38 | Outpatient (AMB) | payer BC, SELFPAY ==
--- NOTE | 2023-11-20 13:42 | A.OFFVIS_ITS ---
Intake Vital Signs 11/20/23 13:43 Height 5 ft 11 in Weight 183 lb BMI 25.5 BP 120/80 Blood Pressure Location Lt brachial Position Sitting Pulse 63 Intake Visit Reasons: 1Y follow up Intake Note: 1 year follow-up with ekg feeling good Event Specialist Food Demonstrator Required: No Allergies Penicillins [PENICILLINS] Allergy (Unknown, Verified 04/06/22 10:29) RASH Medication List - Last Reconciled 11/20/23 by Jeet Rothman MD No Known Home Meds HPI HPI Comments History of Present Illness Details Adriano comes for follow-up. He is doing very well from cardiac perspective. No recurrent palpitation irregular heartbeat or fast heart rate. Denies any shortness of breath, orthopnea, PND. He continues to remain highly functional and active and still plays ice hockey. No symptoms associated with it. Currently not taking any medications. Drinks about 1 beer a day [facility] Medical History On anticoagulant therapy History of cardioversion Paroxysmal atrial fibrillation GERD (gastroesophageal reflux disease) History of COVID-19 Hx of Lyme disease Cardiomyopathy Atrial fibrillation with rapid ventricular response Surgical History History of appendectomy Hx of colonoscopy Family History Father Afib CVD (cardiovascular disease) Mother CVD (cardiovascular disease) Social History Are you a primary health care liaison to a significant other at home: No Do you presently have visiting nurse or other home services: No Alcohol intake: current Alcohol intake frequency: 0-2 drinks per day Patient Tobacco Use Status: Never used Tobacco Review of Systems Const Denies chills, Denies fatigue, Denies fever(s), Denies frequent falls, Denies weakness, Denies weight gain and Denies weight loss ENT Denies dizziness Card Denies chest pain, Denies leg edema, Denies lightheadedness, Denies palpitations, Denies dyspnea, Denies dyspnea on exertion, Denies orthopnea and Denies other (loss of consciousness) Resp Denies cough, Denies dyspnea and Denies dyspnea on exertion GI Denies hematochezia and Denies change in stool character Musc Denies abnormal gait, Denies muscle weakness, Denies numbness, Denies radiating pain into limb and Denies tingling Neuro Denies abnormal gait, Denies dizziness, Denies frequent falls, Denies numbness, Denies tingling and Denies weakness Endo Denies fatigue and Denies palpitations Physical Exam Vital Signs: Last Vital Signs Pulse 63 11/20/23 13:43 BP 120/80 11/20/23 13:43 BMI result Body Mass Index 25.5 Const General: cooperative, comfortable, alert and awake Nutritional Appearance: thin Orientation/consciousness: patient oriented x3 Limitations: no limitations Neck Neck: Yes trachea midline, Yes supple and Yes no JVD Resp Effort & Inspection: normal respiratory effort Auscultation: clear to auscultation bilaterally Cardio Jugular venous distension: no JVD Rate: regular rate and tachycardic Rhythm: regular rhythm Heart sounds: S1 normal heart sound present, S2 normal heart sound present, no click, no gallops, no murmurs and no rubs GI Auscultation: normal bowel sounds Skin General skin exam: no rashes or lesions noted Neuro General: patient oriented x3 and no focal motor deficits Extrem General: Yes no clubbing, cyanosis or edema Psych Appearance: grossly normal Office Procedures EKG Details: EKG shows normal sinus rhythm with normal EKG [id number], Complete Assessment & Plan Assessment & Plan (1) Paroxysmal atrial fibrillation: Comment: Foll'd by Dr. Rothman. Status post ablation of atrial flutter as well as pulmonary vein isolation, July 2021 Code(s): I48.0 - Paroxysmal atrial fibrillation Plan: Paroxysmal atrial fibrillation as well as flutter status post ablation therapy without any clinical recurrence. Currently off all medications. Doing very well from cardiac perspective. Avoidance of stimulants such as excessive c affeine or alcohol use was discussed. Understands agrees. Advised to call me with any new symptoms. No other interventions medications required at this point in time. (2) History of cardiomyopathy: Code(s): Z86.79 - Personal history of other diseases of the circulatory system Plan: History of cardiomyopathy in the setting of atrial fibrillation. Has done well with rhythm control approach with normalized LV ejection fraction. No signs or symptoms of heart failure. Continue avoid cardiotoxic agent. Report atrial fibrillation recurrent right away. Follow up with echocardiogram in 1 year's time. Will follow up in the clinic in 1 year's time, sooner p.r.n.. Thank you for all owing me to partake in his care Orders: Orders CA echo transthoracic complete 50 Weeks Z86.79 - Personal history of other diseases of the circulatory system Coding Level of Care Code Est Pt Level 4 (00809) Diagnoses Paroxysmal atrial fibrillation I48.0 History of cardiomyopathy Z86.79 CPT Codes EKG - CPT: 54714-[id number], Complete ([id number])
[2023-11-20 13:43] VITALS: BP 120/80; PULSE 63; BMI 25.5
== END 2023-11-20 14:47 | disposition home or self-care (01) ==
PROVIDERS: PCP Internal Medicine; Visit Provider Internal Medicine Cardiovascular Disease
DX: I48.0 Paroxysmal atrial fibrillation (principal); Z86.79 Personal history of other diseases of the circulatory system
CPT/HCPCS: 93010; 99214

== ENCOUNTER → 2023-11-20 13:38 | Outpatient (BNVA) | payer BC, SELFPAY | PROVIDERS: PCP Internal Medicine; Visit Provider Internal Medicine Cardiovascular Disease | DX: I48.0 Paroxysmal atrial fibrillation (principal); Z86.79 Personal history of other diseases of the circulatory system | CPT/HCPCS: 93005 ==

== ENCOUNTER 2024-01-30 12:26 | Outpatient (REF) | payer BC, SELFPAY ==
--- NOTE | ~2024-01-30 | XR_ITS ---
EXAMINATION: XR SINUSES CLINICAL INFORMATION: Sinus congestion, patient states cold for 3 months. COMPARISON: None available. TECHNIQUE: 5 views of the paranasal sinuses. FINDINGS: No gross air-fluid levels appreciated in the maxillary sinuses. Frontal sinuses are grossly clear. Hazy opacification of the ethmoid sinuses. Limited visualization due to overlying bony structures. XR/XR sinus min 3V IMPRESSION: Hazy opacification of the ethmoid sinuses. Dedicated CT scan of the paranasal sinuses/facial bones recommended if there is concern for sinus disease, facial bone fracture or other intracranial pathology as CT scan is much more sensitive for evaluation of intracranial pathology.
--- NOTE | ~2024-01-30 | XR_ITS ---
EXAMINATION: XR CHEST CLINICAL INFORMATION: Cough status post Covid. Patient states cold for 3 months. COMPARISON: 10/17/2017, TECHNIQUE: 2 views of the chest were obtained. FINDINGS: There is no gross pneumothorax. Heart size is normal. No pleural effusion. No focal consolidation to suggest pneumonia. Degenerative changes in the thoracic spine. XR/XR chest 2V IMPRESSION: No evidence of pneumonia.
== END 2024-01-30 12:27 | disposition home or self-care (01) ==
LOC: HO.XRAY 12:26
PROVIDERS: PCP Internal Medicine; Visit Provider Internal Medicine
DX: R05.9 Cough, unspecified (principal); R09.81 Nasal congestion; R06.2 Wheezing
CPT/HCPCS: 70220; 71046

== ENCOUNTER 2024-03-13 12:05 | Outpatient (REF) | payer BC, SELFPAY ==
[2024-03-13 13:11] LABS: MANUAL DIFF FLAG NO
[2024-03-13 13:22] LABS: Basophils Percent Auto 0.6 % (0-2); Eosinophils Absolute Auto 0.2 X10*3/uL (0.0-0.4); Eosinophils Percent Auto 2.5 % (0-4); Hematocrit 46.3 % (42.0-52.0); Hemoglobin 16.2 g/dl (14.0-18.0); Imm Gran Abs Auto 0.01 X10*3/uL (0.00-0.03); Imm Gran Pct Auto 0.2 % (0.0-0.4); Mean Corpuscular Hemoglobin 30.3 pg (27.0-33.0); Mean Corpuscular Volume 86.7 fL (80.0-98.0); Mean Platelet Volume 9.6 fL (9.4-12.4); Monocytes Absolute Auto 0.4 X10*3/uL (0.1-1.2); Monocytes Percent Auto 5.9 % (2-11); Neutrophils Absolute Auto 2.8 x10*3/uL (2.0-8.3); Neutrophils Percent Auto 43.8 % (45-73); Platelet Count 263 X10*3/uL (160-400); Red Blood Count 5.34 X10*6/uL (4.60-5.80); Red Cell Distribution Width 12.7 % (11.0-16.0); White Blood Count 6.4 X10*3/uL (4.8-10.8)
[2024-03-13 13:42] LABS: Alanine Aminotransferase 23 U/L (0-40); Albumin Level 4.2 g/dL (3.5-5.0); Alkaline Phosphatase 54 U/L (39-117); Anion Gap 10 (12-20); Aspartate Amino Transferase 21 U/L (5-37); Bilirubin Total 0.8 mg/dL (0.0-1.0); Blood Urea Nitrogen 18 mg/dL (9-16); Carbon Dioxide 25 mmol/L (22-29); Chloride 108 mmol/L (96-108); Estimated Glomerular Filt Rate > 60; Glucose Random 98 mg/dL (60-115); Potassium 3.8 mmol/L (3.3-5.1); Sodium 139 mmol/L (135-145)
[2024-03-13 14:28] LABS: Vitamin B12 397 pg/mL (200-900)
[2024-03-14 09:08] LABS: Lyme Abs Screen <0.90 index
== END 2024-03-13 12:06 | disposition home or self-care (01) ==
LOC: HO.10HDL 12:05
PROVIDERS: Visit Provider Internal Medicine
DX: R53.83 Other fatigue (principal); Z86.19 Personal history of other infectious and parasitic diseases
CPT/HCPCS: 36415; 80053; 82607; 85025; 86617; 86618

== ENCOUNTER → 2024-10-27 08:56 | Outpatient (REF) | payer BC, SELFPAY ==
--- NOTE | 2024-10-27 08:58 | CA_ITS ---
Transthoracic Echocardiogram Patient (Last, First, Middle): Adriano Boothe W Gender: Male Date of : 1955 Age: 68 Procedure Date: 10/27/2024 Procedure Type: Transthoracic Echocardiogram Location: OP Height: 177.8 cm Weight: 81.65 kg BSA: 2.00 m2 Heart Rate: bpm BP: 118 / 60 mmHg Garnett Fixer: OTILIA Referring MD: Jeet Rothman MD Symptoms: Z86.79 - Personal history of other diseases of the circulatory system Study Quality: Adequate ECG Rhythm: Atrial Fibrillation Conclusions: - The left ventricular systolic function is normal. The calculated ejection fraction is 57% by biplane method. - No obvious valvular pathology seen on this study. Findings Left Ventricle Normal left ventricular cavity size. There is mildly increased left ventricular wall thickness. The left ventricular systolic function is normal. The calculated ejection fraction is 57% by biplane method. There is no evidence of regional wall motion abnormalities. Diastolic function is normal for age. Right Ventricle Normal right ventricular cavity size and systolic function. Atria Both atria are normal in size. Aortic Valve There is a normal trileaflet aortic valve. There is no aortic valve stenosis. Trace to mild aortic regurgitation. Mitral Valve The mitral valve appears normal. There is no mitral valve regurgitation. There is no mitral valve stenosis. Pulmonic Valve The pulmonic valve is likely normal. Tricuspid Valve There is trace tricuspid valve regurgitation. There is no evidence of pulmonary hypertension. Great Vessels Top normal ascending aortic size at 3.8cm. Venous The inferior vena cava is normal in size and collapses greater than 50% with inspiration. Pericardium/Pleural There is no evidence of pericardial effusion. Prior Study Comparison Changes noted compared to prior study dated: 07/28/2022. Ascending aortic size dimension smaller than previously reported. Recommendations, Care & Conclusions No obvious valvular pathology seen on this study. Measurements 2D Linear Measurements IVSd: 1.22 0.6-0.9/0.6-1.0 cm LVIDd: 4.63 3.9-5.3/4.2-5.9 cm LVIDd Index: 2.32 2.4-3.2/2.2-3.1 cm/m2 LVIDs: 2.93 2.0-3.6 cm LVPWd: 1.21 0.7-1.1 cm Ao Root: 4.00 2.1-3.5 cm LA Diam: 3.00 2.7-3.8/3.0-4.0 cm LAIDs Index: 1.50 1.5-2.3 cm/m2 LV Mass: 262.75 67-162/88-224 g LV Mass Index: 131.37 43-95/49-115 g/m2 LVOT Diam: 2.20 3.0+(-)1.3 cm 2D Systolic Function EF 4C: 55.30 >55% EF 2C: 61.70 >55% EF BiP: 57.20 >55% Mitral Valve MV Pk E: 0.56 MV PK A: 0.61 MV Decel Time: 164.00 E/A: 0.90 E'Lateral: 8.49 E'Medial: 7.94 E/E' Med: 7.10 E/E' Lat: 6.60 PHT: 48.00 MVA PHT: 4.58 Decel [place]: 3.44 Aortic Valve AoV Pk Geovany: 1.23 AoV Mn Ge[place]: 0.76 AoV VTI: 0.27 AoV Pk Grad: 6.00 Aov Mn Grad: 3.00 AMAURY Cont.VTI: 3.49 LVOT LVOT Pk Geovany: 1.17 LVOT Mn Geovany: 0.67 LVOT VTI: 0.25 LVOT Pk Grad: 5.00 LVOT Mn Grad: 2.00 LVOT Diam: 2.20 LVOT Area: 3.80 Diastolic Function MV Pk E: 0.56 MV Pk A: 0.61 E/A: 0.90 E'Medial: 7.94 E/E' Med: 7.10 E' Laterial: 8.49 E/E' Lat: 6.60 Right Ventricle TAPSE (mm): 29.00 TVS' [place]: 14.00 Tricuspid Valve TR Pk Geovany: 1.83 TR Pk Grad: 13.00 RA Press: 3.00 RVSP: 16.00 Great Vessels Aorta Ao Root-2D: 4.00 2.0-3.7 cm Ao Asc: 3.80 2.1-3.4 cm Pulmonary Valve PV Pk Geovany: 0.97 Peak PV Grad: 4.00 Updated in Other Vendor System with Status of Final Rayray Alonzo MD electronically signed on 10/27/2024 12:36:48 PM with status of Final
== END ==
LOC: HO.CARD 08:56
PROVIDERS: PCP Internal Medicine; Visit Provider Internal Medicine Cardiovascular Disease
DX: Z86.79 Personal history of other diseases of the circulatory system (principal)
CPT/HCPCS: 93306

== ENCOUNTER 2024-11-20 13:17 | Outpatient (AMB) | payer BC, SELFPAY ==
[2024-11-20 13:27] VITALS: BP 120/62; PULSE 67; BMI 25.5
--- NOTE | 2024-11-20 13:27 | A.OFFVIS_ITS ---
Vital Signs 11/20/24 13:27 Height 5 ft 11 in Weight 182 lb 8.684 oz BMI 25.5 BP 120/62 Blood Pressure Location Lt brachial Position Sitting Pulse 67 Pulse Source Monitor Intake Visit Reasons: 1 yr f/up Intake Note: 1 yr f/up Outside Cutter Required: No Accompanied by: Self / Same As Patient Allergies Penicillins [PENICILLINS] Allergy (Unknown, Verified 04/06/22 10:29) RASH Medication List - Last Reconciled 11/20/24 by Jeet Rothman MD No Known Home Meds HPI Comments Details: Adriano comes for follow-up. He has been doing very well. He is remaining very active. Plays ice hockey regularly without any symptoms. Denies any exertional chest pain or shortness of breath. No heart failure symptoms. No irregular heartbeat or prolonged palpitation or fast heart rate. Currently not on any medications. [facility] Medical History On anticoagulant therapy History of cardioversion Paroxysmal atrial fibrillation GERD (gastroesophageal reflux disease) History of COVID-19 Hx of Lyme disease Cardiomyopathy Atrial fibrillation with rapid ventricular response Surgical History History of appendectomy Hx of colonoscopy Family History Father Afib CVD (cardiovascular disease) Mother CVD (cardiovascular disease) Social History Are you a primary physician locums urgent care to a significant other at home: No Do you presently have visiting nurse or other home services: No Alcohol intake: current Alcohol intake frequency: 0-2 drinks per day Patient Tobacco Use Status: Never used Tobacco Review of Systems Const Denies chills, Denies fatigue, Denies fever(s), Denies frequent falls, Denies weakness, Denies weight gain and Denies weight loss ENT Denies dizziness Card Denies chest pain, Denies leg edema, Denies lightheadedness, Denies palpitations , Denies dyspnea and Denies dyspnea on exertion Resp Denies cough, Denies dyspnea and Denies dyspnea on exertion GI Denies hematochezia Musc Denies abnormal gait, Denies muscle weakness, Denies numbness, Denies radiating pain into limb and Denies tingling Neuro Denies abnormal gait, Denies dizziness, Denies frequent falls, Denies numbness, Denies tingling and Denies weakness Endo Denies fatigue and Denies palpitations Physical Exam Vital Signs: Last Vital Signs Pulse 67 11/20/24 13:27 BP 120/62 11/20/24 13:27 BMI result Body Mass Index 25.5 Const General: cooperative, comfortable, alert and awake Nutritional Appearance: thin Orientation/consciousness: patient oriented x3 Limitations: no limitations Neck Neck: Yes trachea midline, Yes supple and Yes no JVD Resp Effort & Inspection: normal respiratory effort Auscultation: clear to auscultation bilaterally Cardio Jugular venous distension: no JVD Rate: regular rate and tachycardic Rhythm: regular rhythm Heart sounds: S1 normal heart sound present, S2 normal heart sound present, no c lick, no gallops, no murmurs and no rubs GI Auscultation: normal bowel sounds Skin General skin exam: no rashes or lesions noted Neuro General: patient oriented x3 and no focal motor deficits Extrem General: Yes no clubbing, cyanosis or edema Psych Appearance: grossly normal Office Procedures EKG Details: EKG shows normal sinus rhythm with normal EKG [id number], Complete Assessment & Plan Assessment & Plan (1) Paroxysmal atrial fibrillation: Comment: Foll'd by Dr. Rothman. Status post ablation of atrial flutter as well as pulmonar y vein isolation, July 2021 Code(s): I48.0 - Paroxysmal atrial fibrillation Category: Medical Plan: Paroxysmal atrial flutter as well as fibrillation status post ablation in 2020. He has done very well from that perspective. He has not had any recurrent ep isodes. We discussed about avoidance of stimulants. Advised to maintain activity level as tolerated. Stress mitigation strategies to be pursued. No change in therapy at this point time. Does have family history of atrial fibrillation and have recommended him to have his kids aware of the same. (2) History of cardiomyopathy: Code(s): Z86.79 - Personal history of other diseases of the circulatory system Category: Medical Plan: Prior history of cardiomyopathy in setting of atrial flutter and fibrillation which was difficult control. Status post ablation with rhythm maintain and his LV ejection fraction has improved. At this point time no change in therapy is required. Avoidance of cardiotoxic in such as alcohol was discussed. Will follow up in the clinic in 1 year's time, sooner p.r.n.. Thank you for allowing me to partake in his care Coding Level of Care Code Est Pt Level 4 (68692) Complex EM visit Add On G2211 Diagnoses Paroxysmal atrial fibrillation I48.0 History of cardiomyopathy Z86.79 CPT Codes EKG - CPT: 46583-[id number], Complete ([id number])
--- OUTSIDE RECORDS SUMMARY | 2024-11-20 14:11 | XMS_ITS ---
Author Organization [facility] Address [address] [place] [id number] Care Team Providers Care Fisher Eel Spear Name Role Phone Kailash Kaur MD Primary Care Provider UnavailMeet Cristina Unavailable [phone] REASON FOR VISIT colonoscopy Encounters Encounter Location Date Provider Diagnosis [facility] [address] [place] [id number] 11/11/2024 Meet Gaitan PLAN OF TREATMENT No Information
--- OUTSIDE RECORDS SUMMARY | 2024-11-20 14:11 | XMS_ITS | Patient Health Record ---
Author Organization [facility] Address [address] [place] [phone] Care Team Providers Care Hogshead Packer Name Role Phone Kailash Kaur MD Primary Care Provider Meet Bentley Unavailable [phone] ALLERGIES Allergen (clinical drug ingredient) Drug/Non Drug Allergy documented on EMR Reaction Allergy Type Onset Date Status Penicillin Unknown Drug Allergy Active REASON FOR REFERRAL No Information MEDICATIONS Medication SIG (Take, Route, Frequency, Duration) Notes Start Date End Date Status Tylenol PRN Active IMMUNIZATIONS Vaccine Route Administration Date Status Comme nts Influenza Unknown 09/22/2020 Refused SOCIAL HISTORY Tobacco Use: Social History Observation Description Date Details (start date - stop date) Former Smoker NA - NA Sex Assigned At : Social History Observation Description Sex Assigned At Unknown Tobacco Use/Smoking Question Answer Notes Patient is a former smoker How long has it been since you last smoked? > 10 years PROBLEMS Problem Type ICD Code Onset Dates Problem Status W/U Status Risk SNOMED Code Notes Problem Encounter for screening for malignant neoplasm of colon (Z12.11) Active confirmed 799446482 Problem Gastroesophageal reflux disease, esophagitis presence not specified (K21.9) Active confirmed 297348336 Problem Family history of colon cancer (Z80.0) Active confirmed 344613567 Problem Gastroesophageal reflux (K21.9) Active confirmed Esophageal reflux finding (601860454) Problem Diverticulosis of colon (K57.30) Active confirmed Diverticulosi s of colon (252557999) Problem Gastroesophageal reflux disease, unspecified whether esophagitis present (K21.9) Active confirmed [id number] Encounters Encounter Location Date Provider Diagnosis [facility] [address] [place] [phone] 11/11/2024 Meet Gaitan PLAN OF TREATMENT Future Test Test Name Order Date UPPER GI ENDOSCOPY 09/05/2017 COLONOSCOPY 09/05/2017 UPPER GI ENDOSCOPY 09/22/2020 COLONOSCOPY 09/22/2020 UPPER GI ENDOSCOPY 07/18/2021 COLONOSCOPY 07/18/2021 Insurance Providers Payer Name Payer Address Payer Phone Subscriber Number Group Number Insured Name Patient Relationship to Insured Coverage Start Date Coverage End Date [facility] [address] [place], [place] [id number] KASHIF DUNN Self - patient is the insured MEDICAL (GENERAL) HISTORY Medical History History ICD Code Screening colonoscopy 12-23-2007-neg. exc ept small internal hemorrhoids Lyme's disease-on intermittent antibioti cs Denies [place],DM,CVA,Lung disease,renal dise ase Hx of skipped heartbeats o r tachycardia--? 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
== END 2024-11-20 13:45 | disposition home or self-care (01) ==
PROVIDERS: PCP Internal Medicine; Visit Provider Internal Medicine Cardiovascular Disease
DX: I48.0 Paroxysmal atrial fibrillation (principal); Z86.79 Personal history of other diseases of the circulatory system
CPT/HCPCS: 93010; 99214

== ENCOUNTER → 2024-11-20 13:17 | Outpatient (BNVA) | payer BC, SELFPAY | PROVIDERS: PCP Internal Medicine; Visit Provider Internal Medicine Cardiovascular Disease | DX: I48.0 Paroxysmal atrial fibrillation (principal); Z86.79 Personal history of other diseases of the circulatory system | CPT/HCPCS: 93005 ==

== ENCOUNTER 2024-12-26 15:41 | Outpatient (AMB) | payer BC, SELFPAY ==
[2024-12-26 15:43] VITALS: BP 118/78; PULSE 72; RESP 14; TEMP 36.4; O2SAT 98; BMI 24.8
--- NOTE | 2024-12-26 15:43 | A.OFFPC_ITS ---
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 Required: No Accompanied by: Self / Same As Patient Allergies Penicillins [PENICILLINS] Allergy (Unknown, Verified 12/26/24 15:43) RASH Tobacco use date assessed: 12/26/24 Fall risk assessment: No Falls in past year Last assessed Fall Risk: 12/26/24 Dental Screening Dental Screen Date: 12/26/24 Did you have a dental visit in the last 12 months?: Yes Did you have a dental problem in the last 6 months where you did not have access to dental care?: No HPI HPI Comments History of Present Illness Details 69 y ear old male with a past medical hi story of cardiomyopathy, pAfib, hyperlipidemia, history of lyme disease presenting for follow up with concerns about development of headaches and ataxia/vertigo. CV: Follows with Dr Rothman- Plays ice hockey. Denies any exertional chest pain or shortness of breath. No heart failure symptoms. No irregular heartbeat or prolonged palpitation or fast heart rate. Currently not on any medications. Vertigo x one year. Went to sit on the toilet on three separate occasions and fell to the side on his way to sit. He has to concentrate on balance and walking. He at times role over in bed and gets classic vertigo. [place] his head a lot working on cars sometimes quite hard. Seeing ophtho for cataracts, has had a few episodes of double vision. Bruising more easily. New onset headaches - intermittent mild for the past year. 3-4 times per week. Head always feels stuffed, full. Did feel some improvement on antibiotics for tooth a few months ago. Sometimes certain foods, especially sugar seems to increase symptoms. Some increased fatigue, not severe. last CBC abnormal. Left shoulder pain. Unable to lift over 90 degree. multiple prior hockey injury 11/[address] Gaitan-5 year colonoscopy ROS see HPI PHYSICAL EXAM: GENERAL: Alert and oriented x 3. NAD EYES: EOMI. Anicteric. HENT: Moist mucous membranes. No scleral icterus. No cervical lymphadenopathy. Ear canals are clear with clear middle ear effusiongs bilaterally LUNGS: Clear to auscultation bilaterally. CARDIOVASCULAR: Regular rate and rhythm. No murmur. No JVD. ABDOMEN: Soft, non-tender +bs EXTREMITIES: No edema. Non-tender. SKIN: No rashes or lesions. Warm. NEUROLOGIC: Poor tandem walking, unable to balance one leg, strength intact PSYCHIATRIC: Cooperative. Appropriate mood and affect [facility] Medical History On anticoagulant therapy History of cardioversion Paroxysmal atrial fibrillation GERD (gastroesophageal reflux disease) History of COVID-19 Hx of Lyme disease Cardiomyopathy Atrial fibrillation with rapid ventricular response Surgical History History of appendectomy Hx of colonoscopy Family History Father Afib CVD (cardiovascular disease) Mother CVD (cardiovascular disease) Social History Housing: House Are you a primary acute care registered nurse to a significant other at home: No Do you presently have visiting nurse or other home services: No Alcohol intake: current Alcohol intake frequency: a few times a month Patient Tobacco Use Status: Former Tobacco user service: No Current occupational status: employed Cognitive needs: No Hearing needs: No Vision needs: Yes (rx glasses) Questionnaire PHQ-9 Over the last 2 weeks, how often have you been bothered by any of the following problems? 1. Little interest or pleasure in doing things: not at all 2. Feeling down, depressed, or hopeless: not at all 3. Trouble falling or staying asleep, or sleeping too much: not at all 4. Feeling tired or having little energy: not at all 5. Poor appetite or overeating: not at all 6. Feeling bad about yourself - or that you are a failure or have let yourself or your family down: not at all 7. Trouble concentrating on things, such as reading the newspaper or watching television: not at all 8. Moving or speaking so slowly that other people could have noticed. Or the opposite - being so fidgety or restless that you have been moving around a lot more than usual: not at all 9. Thoughts that you would be better off or of hurting yourself in some way: not at all Total score: 0 Depression Screening Interpretation: Negative Depression Screening Done: Yes 22565 - PHQ-9 Billing: Yes Source: Developed by Drs. Meet Beauchamp, Keiko Samuel, Foreign Hopson and colleagues, with an educational lyric from [employer]. Thrive Questionnaire Date Thrive assessed: 12/26/24 I am a: Patient What is your living situation today?: I have a steady place to live Within the past 12 months, did the food you bought not last and you didn't have the money to get more?: Never true Within the past 12 months, did you worry whether your food would run out before you got money to buy more?: Never true Do you have trouble paying for medicines?: No Do you have trouble getting transportation to medical appointments?: No Do you have trouble paying your heating and electricity bill?: No Do you have trouble taking care of your child, family member or friend?: No Do you have trouble with day-to-day activities such as bathing, preparing meals, shopping, managing finances, etc.?: No Are you currently unemployed and looking for a job?: No Are you interested in more education?: No Please select the resources that you would like help with: None THRIVE Score: 0 AUDIT C Alcohol Use Questionnaire (AUDIT-C) 1. How often do you have a drink containing alcohol?: 2-4 times a month 2. How many drinks containing alcohol do you have on a typical day when you are drinking?: 1 or 2 3. How often do you have six or more drinks on one occasion?: Never Total Score: 2 SAMANTHA-7 AMB Questionnaire SAMANTHA-7 Date SAMANTHA - 7 assessed: 12/26/24 Feeling nervous, anxious, or on edge: 0 = Not at all Not being able to stop or control worryin = Not at all Worrying too much about different things: 0 = Not at all Trouble relaxin = Not at all Being so restless that it is hard to sit still: 0 = Not at all Becoming easily annoyed or irritable: 0 = Not at all Feeling afraid as if something awful might happen: 0 = Not at all Total SAMANTHA-7 score (0-4 normal; 5-9 mild; 10-14 moderate; 15-21 severe): 0 Source: Developed by Drs. Meet Beauchamp, Keiko Samuel, Foreign Hopson and colleagues, with an educational lyric from [employer]. Physical exam (Primary Care) Vital Signs: Last Vital Signs Temp 97.6 F 12/26/24 15:43 Pulse 72 12/26/24 15:43 Resp 14 12/26/24 15:43 BP 118/78 12/26/24 15:43 Pulse Ox 98 12/26/24 15:43 Oxygen Delivery Method Room Air 12/26/24 15:43 BMI result Body Mass Index 24.8 Tobacco/Smoking Status: Tobacco use Status Tobacco use date assessed 12/26/24 12/26/24 15:44 Patient Tobacco Use Status Former Tobacco user 12/26/24 15:49 PHQ-9: PHQ-9 Score PHQ-9: Total score 0 12/26/24 15:55 Depression Screening Interpretation: Negative Thrive Assessment: Date of Thrive Assessment Date Thrive assessed 12/26/24 12/26/24 15:44 Coding Level of Care Code New Pt Level 5 (88764) Diagnoses Vertigo R42 Ataxia R27.0 New onset headache R51.9 Additional Codes PHQ-9 - 65167 - PHQ-9 Billing: Yes ([id number]) Time Spent (min) 65 Assessment & Plan Assessment & Plan (1) Vertigo: Code(s): R42 - Dizziness and giddiness Category: Medical (2) Ataxia: Code(s): R27.0 - Ataxia, unspecified Category: Medical (3) New onset headache: Code(s): R51.9 - Headache, unspecified Category: Medical Plan JORDAN, balance issues, vertigo, vision changes concerning. MR brain ordered-r/o mass, subdural, CVA Order given for vestibular rehab Trial of 14 day abx course Referral to [facility] ordered left shoulder pain, declines PT-referral for orthopedic evaluation Orders: Orders MR head/brain wo con 12/26/24 H53.2 - Diplopia, R27.0 - Ataxia, unspecified, R51.9 - Headache, unspecified, Z87.820 - Personal history of traumatic brain injury Complete Blood Count Auto Diff 12/26/24 M25.512 - Pain in left shoulder, R51.9 - Headache, unspecified, R79.89 - Other specified abnormal findings of blood chemistry, Z86.79 - Personal history of other diseases of the circulatory system Pathologist Review - CBC 12/26/24 M25.512 - Pain in left shoulder, R51.9 - Headache, unspecified, R79.89 - Other specified abnormal findings of blood chemistry, Z86.79 - Personal history of other diseases of the circulatory system, Z87.820 - Personal history of traumatic brain injury Erythrocyte Sedimentation Rate 12/26/24 M25.512 - Pain in left shoulder, R51.9 - Headache, unspecified, R79.89 - Other specified abnormal findings of blood chemistry, Z86.79 - Personal history of other diseases of the circulatory system Comprehensive Met. Panel 12/26/24 M25.512 - Pain in left shoulder, R51.9 - Headache, unspecified, R79.89 - Other specified abnormal findings of blood chemistry, Z86.79 - Personal history of other diseases of the circulatory system Prostate Specific Antigen 12/26/24 M25.512 - Pain in left shoulder, R51.9 - Headache, unspecified, R79.89 - Other specified abnormal findings of blood chemistry, Z86.79 - Personal history of other diseases of the circulatory system PT Evaluation and Treatment 12/26/24 R42 - Dizziness and giddiness Referrals Orthopedics Referral M25.512 - Pain in left shoulder Allergy & Immunology Referral Z91.018 - Allergy to other foods, Z91.09 - Other allergy status, other than to drugs and biological substances Medications: New amoxicillin-pot clavulanate 875-125 mg 1 tab PO BID 20 tabs 0RF
== END 2024-12-26 16:22 | disposition home or self-care (01) ==
LOC: HO.HMCHD 15:42
PROVIDERS: PCP Internal Medicine; Visit Provider Internal Medicine
DX: R42 Dizziness and giddiness (principal); R27.0 Ataxia, unspecified; R51.9 Headache, unspecified

== ENCOUNTER 2024-12-26 15:41 | Outpatient (REF) | payer BC, SELFPAY ==
[2024-12-26 16:42] LABS: MANUAL DIFF FLAG NO
[2024-12-26 17:13] LABS: Basophils Absolute Auto 0.1 X10*3/uL (0.0-0.2); Basophils Percent Auto 0.7 % (0-2); Eosinophils Absolute Auto 0.1 X10*3/uL (0.0-0.4); Eosinophils Percent Auto 1.6 % (0-4); Hematocrit 44.8 % (42.0-52.0); Hemoglobin 15.8 g/dl (14.0-18.0); Imm Gran Abs Auto 0.02 X10*3/uL (0.00-0.03); Imm Gran Pct Auto 0.2 % (0.0-0.4); Lymphocytes Absolute Auto 3.9 X10*3/uL (1.2-4.9); Lymphocytes Percent Auto 44.4 % (20-40); Mean Corpuscular HGB Conc 35.3 g/dl (31.0-36.0); Mean Corpuscular Hemoglobin 30.7 pg (27.0-33.0); Monocytes Absolute Auto 0.5 X10*3/uL (0.1-1.2); Monocytes Percent Auto 5.9 % (2-11); Neutrophils Absolute Auto 4.2 x10*3/uL (2.0-8.3); Neutrophils Percent Auto 47.2 % (45-73); Platelet Count 265 X10*3/uL (160-400); Red Blood Count 5.15 X10*6/uL (4.60-5.80); Red Cell Distribution Width 12.7 % (11.0-16.0); White Blood Count 8.8 X10*3/uL (4.8-10.8)
[2024-12-26 17:53] LABS: Erythrocyte Sedimentation Rate 3 MM/HR (0-15)
[2024-12-26 18:13] LABS: Alanine Aminotransferase 20 U/L (0-40); Anion Gap 10 (12-20); Aspartate Amino Transferase 22 U/L (5-37); Bilirubin Total 0.6 mg/dL (0.0-1.0); Blood Urea Nitrogen 17 mg/dL (9-16); Calcium 9.1 mg/dL (8.4-10.2); Carbon Dioxide 25 mmol/L (22-29); Chloride 108 mmol/L (96-108); Estimated Glomerular Filt Rate > 60; Glucose Random 84 mg/dL (60-115); Potassium 3.8 mmol/L (3.3-5.1); Sodium 139 mmol/L (135-145); Total Protein 6.8 g/dL (6.5-8.0)
[2024-12-26 18:28] LABS: Alkaline Phosphatase 52 U/L (39-117)
[2024-12-26 18:35] LABS: Prostate Specific Antigen 1.13 ng/mL (<0.05-4.0)
== END 2024-12-26 15:42 | disposition home or self-care (01) ==
LOC: HO.LAB 15:41
PROVIDERS: PCP Internal Medicine; Visit Provider Internal Medicine
DX: R42 Dizziness and giddiness (principal); R27.0 Ataxia, unspecified; R51.9 Headache, unspecified; M25.512 Pain in left shoulder; R79.89 Other specified abnormal findings of blood chemistry; Z86.79 Personal history of other diseases of the circulatory system; Z87.820 Personal history of traumatic brain injury; Z12.5 Encounter for screening for malignant neoplasm of prostate
CPT/HCPCS: 80053; 84153; 85025; 85652; 96127

== ENCOUNTER 2025-01-10 09:16 | Outpatient (REF) | payer BC, SELFPAY ==
--- NOTE | ~2025-01-10 | MR_ITS ---
EXAMINATION: MR BRAIN WITHOUT IV CONTRAST HISTORY: R51.9 - Headache, unspecified TECHNIQUE: Sagittal T1, and axial T1, FLAIR, T2, gradient echo, and diffusion weighted MR images of the brain were obtained. COMPARISON: None FINDINGS: There is mild prominence of the ventricular system and cortical sulci, consistent with atrophy. Scattered periventricular and subcortical white matter hyperintensities are noted on the FLAIR and T2-weighted images which are nonspecific, but often seen in the setting of small vessel ischemic disease. There is no mass effect or midline shift. There is a focus of magnetic susceptibility artifact in the posterior right temporal lobe, consistent with hemosiderin or possibly calcification. There is no evidence of acute intracranial hemorrhage. There are no foci of restricted diffusion. Normal vascular flow voids are noted in the basilar and carotid arteries. The visualized paranasal sinuses are clear. MR/MR head/brain wo con IMPRESSION: No evidence of acute infarct or intracranial hemorrhage. Electronically signed by: Meet Emery MD 01/12/2025 07:18 AM EDT
--- OUTSIDE RECORDS SUMMARY | 2025-01-10 09:20 | XMS_ITS | Patient Health Record ---
Author Organization [facility] Address [address] [place] [address] Care Team Providers Care Gold Reclaimer Name Role Phone Kailash Kaur MD Primary Care Provider Meet Bentley Unavailable [phone] Allergies Allergen (clinical drug ingredient) Drug/Non Drug Allergy documented on EMR Reaction Allergy Type Onset Date Status Penicillin Unknown Drug Allergy Active Reason For Referral No Information Medications Medication SIG (Take, Route, Frequency, Duration) Notes Start Date End Date Status Tylenol PRN Active Immunizations Vaccine Route Administration Date Status Comme nts Influenza Unknown 09/22/2020 Refused Social History Tobacco Use: Social History Observation Description Date Details (start date - stop date) Former Smoker NA - NA Tobacco Use/Smoking Question Answer Notes Patient is a former smoker How long has it been since you last smoked? > 10 years Section Notes: Nonsmoker > 10 yrs ago; occ. alcohol Nonsmoker > 10 yrs ago; 1-2 beers QD Nonsmoker > 10 yrs ago; 1-2 beers QD Problems Problem Type SNOMED Code ICD Code Onset Dates Problem Status W/U Status Risk Notes Problem [id number] Encounter for screening for malignant neoplasm of colon (Z12.11) Active confirmed Problem 417888061 Gastroesophageal reflux disease, esophagitis presence not specified (K21.9) Active confirmed Problem 683424487 Family history o f colon cancer (Z80.0) Active confirmed Problem Esophageal reflux finding (772129992) Gastroesophageal reflux (K21.9) Active confirmed Problem Diverticulosis of colon (667729702) Diverticulosis of colon (K57.30) Active confirmed Problem 620051861 Gastroesophageal reflux disease, unspecified whether esophagitis present (K21.9) Active confirmed Encounters Encounter Location Date Provider Diagnosis [facility] [address] [place] [address] 11/11/2024 Meet Gaitan Plan Of Treatment Future Test Test Name Order Date UPPER GI ENDOSCOPY 09/05/2017 COLONOSCOPY 09/05/2017 UPPER GI ENDOSCOPY 09/22/2020 COLONOSCOPY 09/22/2020 UPPER GI ENDOSCOPY 07/18/2021 COLONOSCOPY 07/18/2021 Insurance Providers Payer Name Payer Address Payer Phone Subscriber Number Group Number Insured Name Patient Relationship to Insured Coverage Start Date Coverage End Date [facility] [address] [place], [place] [id number] KASHIF DUNN Self - patient is the insured Medical (General) History Medical History History ICD Code Screening colonoscopy 12-23-2007-neg. exc ept small internal hemorrhoids Lyme's disease-on intermittent antibioti cs Denies [place],DM,CVA,Lung disease,renal dise ase Hx of skipped heartbeats o r tachycardia--? 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
--- OUTSIDE RECORDS SUMMARY | 2025-01-10 09:20 | XMS_ITS ---
Author Organization [facility] Address [address] [place] [phone] Care Team Providers Care Stage Set Up Worker Name Role Phone Kailash Kaur MD Primary Care Provider Meet Bentley [phone] REASON FOR VISIT colonoscopy Encounters Encounter Location Date Provider Diagnosis [facility] [address] [facility] [address] [place] [phone] 11/11/2024 Meet Gaitan Plan Of Treatment No Information Progress Notes * KASHIF DUNN WDOB:1955 (68 yo M)Acc No.[id number]:11/11/2024 Patient:?KASHIF DUNN :1955???Age:68 Y???Sex:Male Address:[address] [place] [address] * true * Date:? Generated for Delphine wells/Mary/eTransmitting on:?01/10/2025 09:20 AM EDT
== END 2025-01-10 09:17 | disposition home or self-care (01) ==
LOC: HO.MRI 09:16
PROVIDERS: PCP Internal Medicine; Visit Provider Internal Medicine
DX: R51.9 Headache, unspecified (principal); R27.0 Ataxia, unspecified; H53.2 Diplopia; Z87.820 Personal history of traumatic brain injury
CPT/HCPCS: 70551

== ENCOUNTER → 2025-01-10 09:16 | Outpatient (BNV) | payer BC, SELFPAY | PROVIDERS: PCP Internal Medicine; Visit Provider Radiology Diagnostic Radiology | DX: R51.9 Headache, unspecified (principal) | CPT/HCPCS: 70551 ==

== ENCOUNTER 2025-02-02 08:16 | Outpatient (REF) | payer BC, SELFPAY ==
--- NOTE | ~2025-02-02 | XR_ITS ---
EXAMINATION: XR SHOULDER, LEFT CLINICAL INFORMATION: M25.519 - Pain in unspecified shoulder COMPARISON: None available. TECHNIQUE: AP external rotation, Grashey, scapular Y, and axillary views of the left shoulder. FINDINGS: Normal bone mineralization. No fracture, dislocation, or suspicious bone lesion. Normal alignment. The glenohumeral joint demonstrate moderate osteoarthrosis with undersurface spurs. The AC joint demonstrates moderate predominantly superior surface spurring. There is a neutral lateral acromion. Minimal undersurface spurring. The subacromial space is mildly narrowed. Remainder of the soft tissue and bony structures appear normal. XR/XR shoulder LT min 2V IMPRESSION: 1. No acute bony abnormalities. 2. Moderate glenohumeral joint and AC joint osteoarthrosis. 3. Minimal subacromial spurring with mild narrowing of the subacromial space. Electronically signed by: Kingston García MD 02/02/2025 01:27 PM EDT
== END 2025-02-02 08:17 | disposition home or self-care (01) ==
LOC: HO.HOSX 08:16
PROVIDERS: Visit Provider Physician Assistant
DX: M25.512 Pain in left shoulder (principal)
CPT/HCPCS: 73030

== ENCOUNTER 2025-02-02 08:43 | Outpatient (AMB) | payer BC, SELFPAY ==
--- NOTE | 2025-02-02 08:50 | MHC.OFFVIS ---
Vital Signs 02/02/25 08:53 Height 5 ft 11 in Weight 178 lb BMI 24.8 Handedness Right Intake Visit Reasons: New Pt - left shoulder pain Intake Note: Adriano is a 69 year old right hand dominant male who presents today as a new patient for a evaluation of his left shoulder pain. Hx of pain starting in 08/2020. Patient had a couple falls leading him to fall on his shoulder. Patient has a hx of vertigo. He states that his pain is on the lateral aspect of the shoulder and it moves down to the bicep. Patient reports that his ROM is limited. Allergies Penicillins [PENICILLINS] Allergy (Unknown, Verified 02/02/25 08:52) RASH HPI HPI New Pt - left shoulder pain: Details: Mr. Boothe is a 69-year-old right-hand dominant male who presents to the office today for evaluation of left shoulder pain. He reports that in 2019 he was playing hockey and injured the left shoulder. He reports that the pain is mostly located on the lateral aspect of the shoulder and radiates down into the biceps. He has not had any prior treatment. [facility] Medical History On anticoagulant therapy History of cardioversion Paroxysmal atrial fibrillation GERD (gastroesophageal reflux disease) History of COVID-19 Hx of Lyme disease Cardiomyopathy Atrial fibrillation with rapid ventricular response Surgical History History of appendectomy Hx of colonoscopy Family History Father Afib CVD (cardiovascular disease) Mother CVD (cardiovascular disease) Social History Housing: House Are you a primary healthcare account manager to a significant other at home: No Do you presently have visiting nurse or other home services: No Alcohol intake: current Alcohol intake frequency: a few times a month Patient Tobacco Use Status: Former Tobacco user service: No Current occupational status: employed Cognitive needs: No Hearing needs: No Vision needs: Yes (rx glasses) Review of Systems Const All systems reviewed & are unremarkable except as noted in HPI and below Physical Exam Vital Signs: BMI result Body Mass Index 24.8 Assessment & Plan Assessment & Plan (1) Osteoarthritis of left glenohumeral joint: Code(s): M19.012 - Primary osteoarthritis, left shoulder Category: Medical (2) Rotator cuff insufficiency of left shoulder: Code(s): M25.312 - Other instability, left shoulder Category: Medical Plan Mr. Boothe is a 69-year-old right-hand dominant male who presents to the office today for evaluation of left shoulder pain. He reports that in 2019 he was playing hockey and injured the left shoulder. He reports that the pain is mostly located on the lateral aspect of the shoulder and radiates down into the biceps. He has not had any prior treatment. While in the office today, we discussed the role of cortisone injections. Patient would like to hold off at this time. He will keep in mind if his pain becomes significant and is impacting his daily life that he will contact me and we can move forward with cortisone injection. We also briefly discussed the role of total joint arthroplasty. As the patient has not tried any conservative treatment this is not recommended at this time. Patient has also not looking for surgical intervention at this time. He will follow up PRN, sooner if needed. X-rays of the left shoulder which were obtained while in the office today and were reviewed by me, Kristine Norman PA-C, revealed high-riding humerus and glenohumeral joint arthritis osteophytes off of the inferior humeral head and glenoid. Orders: Orders XR shoulder LT min 2V Today M25.519 - Pain in unspecified shoulder Coding Level of Care Code New Pt Level 4 (97972) Diagnoses Osteoarthritis of left glenohumeral joint M19.012 Rotator cuff insufficiency of left shoulder M25.312
[2025-02-02 08:53] VITALS: BMI 24.8
--- OUTSIDE RECORDS SUMMARY | 2025-02-02 09:07 | XMS_ITS ---
Author Organization [facility] Address [address] [place] [phone] Care Team Providers Care Roll Over Loader Name Role Phone Kailash Kaur MD Primary Care Provider Meet Bentley [phone] REASON FOR VISIT colonoscopy Encounters Encounter Location Date Provider Diagnosis [facility] [address] [facility] [address] [place] [phone] 11/11/2024 Meet Gaitan Plan Of Treatment No Information Progress Notes * KASHIF DUNN WDOB:1955 (68 yo M)Acc No.[id number]:11/11/2024 Patient:?KASHIF DUNN :1955???Age:68 Y???Sex:Male Address:[address] [place] [id number] * true * Date:? Generated for Delphine wells/Mary/eTransmitting on:?02/02/2025 09:07 AM EDT
--- OUTSIDE RECORDS SUMMARY | 2025-02-02 09:07 | XMS_ITS | Patient Health Record ---
Author Organization [facility] Address [address] [place] [address] Care Team Providers Care Cio Name Role Phone Kailash Kaur MD Primary Care Provider Meet Bentley Unavailable [phone] Allergies Allergen (clinical drug ingredient) Drug/Non Drug [...] Problem Status W/U Status Risk Notes Problem 515742081 Encounter for screening for malignant neoplasm of colon (Z12.11) Active confirmed Problem 427814523 Gastroesophageal reflux disease, esophagitis presence not specified (K21.9) Active confirmed Problem 097883544 Family history o f colon cancer (Z80.0) Active confirmed Problem Gastroesophageal reflux (K21.9) Active confirmed Problem Diverticulosis of colon (917644065) Diverticulosis of colon (K57.30) Active confirmed Problem 173147139 Gastroesophageal reflux disease, unspecified whether esophagitis present (K21.9) Active confirmed Encounters Encounter Location Date Provider Diagnosis [facility] [address] [place] [address] 11/11/2024 Meet Gaitan Plan Of Treatment Future Test Test Name Order Date UPPER GI ENDOSCOPY 09/05/2017 COLONOSCOPY 09/05/2017 UPPER GI ENDOSCOPY 09/22/2020 COLONOSCOPY 09/22/2020 UPPER GI ENDOSCOPY 07/18/2021 COLONOSCOPY 07/18/2021 Insurance Providers Payer Name Payer Address Payer Phone Subscriber Number Group Number Insured Name Patient Relationship to Insured Coverage Start Date Coverage End Date [facility] [address] [place], [place] [id number] KASHIF DUNN Self - patient is the insured Medical (General) History Medical History History ICD Code Screening colonoscopy 12-23-2007-neg. exc ept small internal hemorrhoids Lyme's disease-on intermittent antibioti cs Denies [place],DM,CVA,Lung disease,renal dise ase Hx of skipped heartbeats o r tachycardia--? 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
== END 2025-02-02 09:07 | disposition home or self-care (01) ==
LOC: HO.HOS 08:43
PROVIDERS: PCP Internal Medicine; Visit Provider Physician Assistant
DX: M19.012 Primary osteoarthritis, left shoulder (principal); M25.312 Other instability, left shoulder
CPT/HCPCS: 99203

== ENCOUNTER → 2025-02-02 08:44 | Outpatient (BNV) | payer BC, SELFPAY | PROVIDERS: Visit Provider Radiology Diagnostic Radiology | DX: M19.012 Primary osteoarthritis, left shoulder (principal); M19.022 Primary osteoarthritis, left elbow | CPT/HCPCS: 73030 ==

== ENCOUNTER 2025-02-19 12:03 | Outpatient (AMB) | payer BC, SELFPAY ==
--- NOTE | 2025-02-19 12:07 | A.OFFPC_ITS ---
Vital Signs 02/19/25 12:13 Height 5 ft 11 in Weight 182 lb 4 oz BMI 25.4 BP 102/62 Blood Pressure Location Rt brachial Position Sitting Pulse 80 Pulse Source Pulse Oximeter Temp 98.1 F Temp Source Temporal Artery Scan Pulse Oximetry (%) 96 Intake Visit Reasons: PRE/ SURGERY Intake Note: Adriano presents in the office today for a pre-op. Patient is having cataract surgery March 06, 2025 and March 20, 2025. Allergies Penicillins [PENICILLINS] Allergy (Unknown, Verified 02/19/25 12:09) RASH Tobacco use date assessed: 02/19/25 Fall risk assessment: No Falls in past year Last assessed Fall Risk: 02/19/25 Dental Screening Dental Screen Date: 02/19/25 Did you have a dental visit in the last 12 months?: Yes Did you have a dental problem in the last 6 months where you did not have access to dental care?: No Was dental information given to patient?: Patient has dentist HPI HPI Comments History of Present Illness Details This is a 69-year-old male with a past medical history of osteoarthritis, vertigo, paroxysmal atrial flutter and fibrillation status post ablation in 2020 presenting for a preop exam. Patient is having cataract surgery on 03/06/2025 and 03/20/[address] [facility] [place]. Patient is not on any medications or supplements other than a multivitamin. Denies recent infections. Nonsmoker. No history of diabetes. Denies history of pulmonary disease. Denies history of clotting issues. Patient is followed by [facility] for history of atrial fibrillation/atrial flutter. Denies palpitations, chest pain, shortness of breath or edema. Patient had cardiomyopathy in this setting. He had an echocardiogram in October of this year which demonstrated LVEF of 57%. He has no mobility issues. He plays ice hockey for exercise. ROS: Constitutional: No unexplained weight loss, fever, chills, fatigue or night sweats. Eyes: No eye pain, eye redness, eye discharge. ENT: No hearing loss, sneezing, congestion, runny nose or sore throat. Respiratory: No shortness of breath, cough or sputum production. Cardiovascular: No chest pain, chest pressure or chest discomfort. No palpitations or pedal edema. Gastrointestinal: No anorexia, nausea, vomiting or diarrhea. No abdominal pain or blood in stool. Genitourinary: No dysuria, hematuria, urinary frequency. Neurologic: No headache, dizziness, syncope, unilateral weakness, ataxia, numbness or tingling in the extremities. Hematologic/Lymphatics: No bleeding or bruising. Skin: No rash Physical exam: Constitutional: Alert, in no distress. Eyes: Pupils are equal, round and reactive to light. Extraocular muscles intact. Neck: Supple, Full range of motion. No lymphadenopathy. Respiratory: Clear to auscultation. Cardiovascular: S1 S2 regular. No murmurs. Gastrointestinal: Abdomen soft, non-tender, non-distended. Normal bowel sounds. No palpable masses. Neurologic: No focal neurological deficits. Symmetric patellar reflexes. Moves all extremities spontaneously. Sensation intact bilaterally. Skin: No rashes Extremities: Warm and well perfused. No clubbing, cyanosis or edema. Intact peripheral pulses bilaterally. Psychiatric: Normal mood and affect [facility] Medical History On anticoagulant therapy History of cardioversion Paroxysmal atrial fibrillation GERD (gastroesophageal reflux disease) History of COVID-19 Hx of Lyme disease Cardiomyopathy Atrial fibrillation with rapid ventricular response Surgical History History of appendectomy Hx of colonoscopy Family History (Updated 02/19/25 @ 12:13 by Mattie Shelton MA) Father Afib CVD (cardiovascular disease) Mother CVD (cardiovascular disease) Brother Alcoholism FHx: mental illness Bipolar 1 disorder Other Substance abuse Social History (Updated 02/19/25 @ 12:11 by Mattie Shelton MA) Housing: House Are you a primary ambulatory care nurse to a significant other at home: No Do you presently have visiting nurse or other home services: No Alcohol intake: current Alcohol intake frequency: a few times a month Patient Tobacco Use Status: Former Tobacco user e-Cigarette/Vaping Use: Never Used Second Hand Smoke Exposure: No Use of substances other than those prescribed or required for medical reasons: No service: No Current occupational status: employed Current occupational exposures/hazards: No Cognitive needs: No Hearing needs: No Vision needs: Yes (rx glasses) Questionnaire PHQ-9 Over the last 2 weeks, how often have you been bothered by any of the following problems? 1. Little interest or pleasure in doing things: not at all 2. Feeling down, depressed, or hopeless: not at all 3. Trouble falling or staying asleep, or sleeping too much: not at all 4. Feeling tired or having little energy: not at all 5. Poor appetite or overeating: not at all 6. Feeling bad about yourself - or that you are a failure or have let yourself or your family down: not at all 7. Trouble concentrating on things, such as reading the newspaper or watching television: not at all 8. Moving or speaking so slowly that other people could have noticed. Or the opposite - being so fidgety or restless that you have been moving around a lot more than usual: not at all 9. Thoughts that you would be better off or of hurting yourself in some way: not at all Total score: 0 Depression Screening Interpretation: Negative Depression Screening Done: Yes 02492 - PHQ-9 Billing: Patient declined-do not bill Source: Developed by Drs. Meet Beauchamp, Keiko Samuel, Foreign uriarte nd colleagues, with an educational lyric from [employer]. Thrive Questionnaire Date Thrive assessed: 02/19/25 I am a: Patient What is your living situation today?: I have a steady place to live Within the past 12 months, did the food you bought not last and you didn't have the money to get more?: Never true Within the past 12 months, did you worry whether your food would run out before you got money to buy more?: Never true Do you have trouble paying for medicines?: Yes Do you have trouble getting transportation to medical appointments?: No Do you have trouble paying your heating and electricity bill?: No Do you have trouble taking care of your child, family member or friend?: No Do you have trouble with day-to-day activities such as bathing, preparing meals, shopping, managing finances, etc.?: No Are you currently unemployed and looking for a job?: No Are you interested in more education?: No Please select the resources that you would like help with: None Currently or been in a relationship where the following occur: No concerns reported THRIVE Score: 0 AUDIT C Alcohol Use Questionnaire (AUDIT-C) 1. How often do you have a drink containing alcohol?: 2-4 times a month 2. How many drinks containing alcohol do you have on a typical day when you are drinking?: 1 or 2 3. How often do you have six or more drinks on one occasion?: Never Total Score: 2 Score Reviewed/Action Taken: No SAMANTHA-7 AMB Questionnaire SAMANTHA-7 Date SAMANTHA - 7 assessed: 02/19/25 Feeling nervous, anxious, or on edge: 0 = Not at all Not being able to stop or control worryin = Not at all Worrying too much about different things: 0 = Not at all Trouble relaxin = Not at all Being so restless that it is hard to sit still: 0 = Not at all Becoming easily annoyed or irritable: 0 = Not at all Feeling afraid as if something awful might happen: 0 = Not at all Total SAMANTHA-7 score (0-4 normal; 5-9 mild; 10-14 moderate; 15-21 severe): 0 Source: Developed by Drs. Meet Beauchamp, Keiko Samuel, [employer] and colleagues, with an educational lyric from [employer]. SAMANTHA-7 Assessment Billing SAMANTHA-7 Assessment Tool: SAMANTHA-7 Assessment 08763 Physical exam (Primary Care) Vital Signs: Last Vital Signs Temp 98.1 F 02/19/25 12:13 Pulse 80 02/19/25 12:13 BP 102/62 02/19/25 12:13 Pulse Ox 96 02/19/25 12:13 BMI result Body Mass Index 25.4 Tobacco/Smoking Status: Tobacco use Status Tobacco use date assessed 02/19/25 02/19/25 12:15 Patient Tobacco Use Status Former Tobacco user 02/19/25 12:15 e-Cigarette/Vaping Use Never Used 02/19/25 12:15 PHQ-9: PHQ-9 Score PHQ-9: Total score 0 02/19/25 12:15 Depression Screening Interpretation: Negative Thrive Assessment: Date of Thrive Assessment Date Thrive assessed 02/19/25 02/19/25 12:15 Currently or been in a relationship where the following occur: No concerns reported Office Procedures EKG Details: EKG shows normal sinus rhythm and a ventricular rate of 78 beats per minute 59762-Hrbqqstbhdxaehptq, Complete Coding Level of Care Code Est Pt Level 4 (75247) Complex EM visit Add On G2211 Diagnoses Pre-op exam Z01.818 CPT Codes EKG - CPT: 77685-Znxbtrzvdufktrrft, Complete ([id number]) Additional Codes SAMANTHA-7 Assessment Billing - SAMANTHA-7 Assessment Tool: SAMANTHA-7 Assessment 05538 ([id number]) Assessment & Plan Assessment & Plan (1) Pre-op exam: Code(s): Z01.818 - Encounter for other preprocedural examination Category: Medical Plan In summary this is a 69-year-old male who presented for preoperative examination today. Mets score is greater than 10. He is at average risk for this low risk procedure and is cleared to proceed with surgery pending lab results. Advised to avoid NSAIDs 7 days prior to procedures. Preop labs and EKG will be faxed along with my note to Dr. Zuñiga. Orders: Orders Prothrombin Time INR Today Z01.818 - Encounter for other preprocedural examination AMB EKG-In Office Today Z01.818 - Encounter for other preprocedural examination Complete Blood Count no Diff Today Z01.818 - Encounter for other preprocedural examination Comprehensive Met. Panel Today Z01.818 - Encounter for other preprocedural examination UA w Microscopic Today R39.9 - Unspecified symptoms and signs involving the genitourinary system, Z01.818 - Encounter for other preprocedural examination
[2025-02-19 12:13] VITALS: BP 102/62; PULSE 80; TEMP 36.7; O2SAT 96; BMI 25.4
--- OUTSIDE RECORDS SUMMARY | 2025-02-19 12:27 | XMS_ITS | Patient Health Record ---
Author Organization [facility] Address [address] [place] [address] Care Team Providers Care Dry Cleaner Presser Name Role Phone Kailash Kaur MD Primary Care Provider Meet Bentley Unavailable [phone] Allergies Allergen (clinical drug ingredient) Drug/Non Drug [...] Problem Status W/U Status Risk Notes Problem 541518455 Encounter for screening for malignant neoplasm of colon (Z12.11) Active confirmed Problem 633709966 Gastroesophageal reflux disease, esophagitis presence not specified (K21.9) Active confirmed Problem 099991212 Family history o f colon cancer (Z80.0) Active confirmed Problem Gastroesophageal reflux (K21.9) Active confirmed Problem Diverticulosis of colon (103273668) Diverticulosis of colon (K57.30) Active confirmed Problem 767262054 Gastroesophageal reflux disease, unspecified whether esophagitis present (K21.9) Active confirmed Encounters Encounter Location Date Provider Diagnosis [facility] [address] [place] [address] 11/11/2024 Meet Gaitan Plan Of Treatment Future Test Test Name Order Date UPPER GI ENDOSCOPY 09/05/2017 COLONOSCOPY 09/05/2017 UPPER GI ENDOSCOPY 09/22/2020 COLONOSCOPY 09/22/2020 UPPER GI ENDOSCOPY 07/18/2021 COLONOSCOPY 07/18/2021 Insurance Providers Payer Name Payer Address Payer Phone Subscriber Number Group Number Insured Name Patient Relationship to Insured Coverage Start Date Coverage End Date [facility] [address] [place], [place] [id number] KASHIF DUNN Self - patient is the insured Medical (General) History Medical History History ICD Code Screening colonoscopy 12-23-2007-neg. exc ept small internal hemorrhoids Lyme's disease-on intermittent antibioti cs Denies [place],DM,CVA,Lung disease,renal dise ase Hx of skipped heartbeats o r tachycardia--? 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
--- OUTSIDE RECORDS SUMMARY | 2025-02-19 12:27 | XMS_ITS ---
Author Organization [facility] Address [address] [place] [address] Care Team Providers Care Mutton Puncher Name Role Phone Kailash Kaur MD Primary Care Provider Meet Bentley [phone] REASON FOR VISIT colonoscopy Encounters Encounter Location Date Provider Diagnosis [facility] [address] [facility] [address] [place] [address] 11/11/2024 Meet Gaitan Plan Of Treatment No Information Progress Notes * KASHIF DUNN WDOB:1955 (68 yo M)Acc No.[id number]:11/11/2024 Patient:?KASHIF DUNN :1955???Age:68 Y???Sex:Male Address:[address] [place] [address] * true * Date:? Generated for Delphine wells/Mary/eTransmitting on:?02/19/2025 12:27 PM EDT
== END 2025-02-19 13:01 | disposition home or self-care (01) ==
LOC: HO.HMCFM 12:04
PROVIDERS: PCP Internal Medicine; Visit Provider Physician Assistant Medical
DX: Z01.818 Encounter for other preprocedural examination (principal)

== ENCOUNTER → 2025-02-19 12:03 | Outpatient (BNVA) | payer BC, SELFPAY | PROVIDERS: PCP Internal Medicine; Visit Provider Physician Assistant Medical | DX: Z01.818 Encounter for other preprocedural examination (principal); I48.0 Paroxysmal atrial fibrillation; R39.9 Unspecified symptoms and signs involving the genitourinary system | CPT/HCPCS: 93005; 96127 ==

== ENCOUNTER 2025-03-03 13:15 | Outpatient (REF) | payer BC, SELFPAY ==
--- OUTSIDE RECORDS SUMMARY | 2025-03-03 14:46 | XMS_ITS | Patient Health Record ---
Author Organization [facility] Address [address] [place] [address] Care Team Providers Care Weighbridge Operator Name Role Phone Kailash Kaur MD Primary Care Provider Meet Bentley Unavailable [phone] Allergies Allergen (clinical drug ingredient) Drug/Non Drug [...] Problem Status W/U Status Risk Notes Problem 107070158 Encounter for screening for malignant neoplasm of colon (Z12.11) Active confirmed Problem 707599539 Gastroesophageal reflux disease, esophagitis presence not specified (K21.9) Active confirmed Problem 677867369 Family history o f colon cancer (Z80.0) Active confirmed Problem Esophageal reflux finding (075323300) Gastroesophageal reflux (K21.9) Active confirmed Problem Diverticulosis of colon (097957673) Diverticulosis of colon (K57.30) Active confirmed Problem 439641990 Gastroesophageal reflux disease, unspecified whether esophagitis present (K21.9) Active confirmed Encounters Encounter Location Date Provider Diagnosis [facility] [address] [place] [address] 11/11/2024 Meet Gaitan Plan Of Treatment Future Test Test Name Order Date UPPER GI ENDOSCOPY 09/05/2017 COLONOSCOPY 09/05/2017 UPPER GI ENDOSCOPY 09/22/2020 COLONOSCOPY 09/22/2020 UPPER GI ENDOSCOPY 07/18/2021 COLONOSCOPY 07/18/2021 Insurance Providers Payer Name Payer Address Payer Phone Subscriber Number Group Number Insured Name Patient Relationship to Insured Coverage Start Date Coverage End Date [facility] [address] [place], [place] [id number] [phone] [id number] KASHIF DUNN Self - patient is the insured Medical (General) History Medical History History ICD Code Screening colonoscopy 12-23-2007-neg. exc ept small internal hemorrhoids Lyme's disease-on intermittent antibioti cs Denies [place],DM,CVA,Lung disease,renal dise ase Hx of skipped heartbeats o r tachycardia--? 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
[2025-03-03 15:02] LABS: Hematocrit 45.8 % (42.0-52.0); Hemoglobin 15.8 g/dl (14.0-18.0); Mean Corpuscular HGB Conc 34.5 g/dl (31.0-36.0); Mean Corpuscular Hemoglobin 30.7 pg (27.0-33.0); Mean Corpuscular Volume 89.1 fL (80.0-98.0); Mean Platelet Volume 10.7 fL (9.4-12.4); Platelet Count 274 X10*3/uL (160-400); Red Blood Count 5.14 X10*6/uL (4.60-5.80); Red Cell Distribution Width 12.6 % (11.0-16.0)
[2025-03-03 15:05] LABS: Prothrombin Time 11.4 SEC (10.9-12.4)
[2025-03-03 16:53] LABS: Alanine Aminotransferase 25 U/L (0-40); Anion Gap 11 (12-20); Aspartate Amino Transferase 25 U/L (5-37); Bilirubin Total 0.7 mg/dL (0.0-1.0); Blood Urea Nitrogen 16 mg/dL (9-16); Calcium 9.1 mg/dL (8.4-10.2); Carbon Dioxide 24 mmol/L (22-29); Chloride 107 mmol/L (96-108); Estimated Glomerular Filt Rate > 60; Glucose Random 136 mg/dL (60-115); Sodium 138 mmol/L (135-145); Total Protein 6.7 g/dL (6.5-8.0)
[2025-03-03 17:14] LABS: Alkaline Phosphatase 55 U/L (39-117)
[2025-03-03 18:46] LABS: Appearance Urine Clear; Color Urine Yellow; Glucose Urine UA Negative (Negative); Leukocyte Esterase Urine Negative (Negative); Nitrite Urine Negative (Negative); PH 5.5 (5.0-9.0); Urine Blood Negative (Negative); Urine Ketones Negative (Negative); Urine Protein Negative (Neg-Trace)
[2025-03-03 18:49] LABS: Bacteria Urine None Seen (None Seen); Hyaline Casts Urine 0-2 /LPF (0-2); RBC Urine 0-2 /HPF (0-2); Squamous Epithelial Cell Urine 0-2 /HPF (0-2); WBC Urine 0-5 /HPF (0-5)
== END 2025-03-03 13:16 | disposition home or self-care (01) ==
LOC: HO.WFDLDS 13:15
PROVIDERS: Visit Provider Physician Assistant Medical
DX: Z01.818 Encounter for other preprocedural examination (principal); R39.9 Unspecified symptoms and signs involving the genitourinary system; Z79.01 Long term (current) use of anticoagulants
CPT/HCPCS: 36415; 80053; 81001; 85027; 85610